=== PATIENT | female | born 1975 | race Caucasian/White ===

== ENCOUNTER 2022-07-26 07:14 | Outpatient (CLI) | payer OTHER, SELFPAY ==
[2022-07-26 07:48] LABS: Basophils Absolute Auto 0.1 K/mm3 (0.0-0.1); Eosinophils Absolute Auto 0.4 K/mm3 (0-0.3); Eosinophils Percent Auto 4.7 % (0-4.4); Hematocrit 40.9 % (37.0-47.0); Hemoglobin 13.3 g/dL (12.0-15.0); Immature Granulocyte Absolute 0.02 K/mm3 (0.00-0.031); Immature Granulocyte Percent A 0.2 % (0-0.5); Lymphocytes Absolute Auto 3.91 K/mm3 (0.9-3.2); Lymphocytes Percent Auto 43.3 % (18.3-44.2); Mean Corpuscular HGB Conc 32.5 g/dl (32-36); Mean Corpuscular Hemoglobin 30.9 pg (26-34); Mean Corpuscular Volume 94.9 fl (80-100); Mean Platelet Volume 9.8 fl (7.4-10.4); Monocytes Absolute Auto 0.7 K/mm3 (0.1-0.6); Monocytes Percent Auto 7.3 % (2.6-8.5); Neutrophils Absolute Auto 3.9 K/mm3 (1.3-6.7); Neutrophils Percent Auto 43.5 % (45.5-73.1); Platelet Count Result 309 k/mm3 (150-375); Red Blood Count 4.31 M/mm3 (4.2-5.4); Red Cell Distribution Width 11.8 % (11.5-14.5)
[2022-07-26 08:05] LABS: Alanine Aminotransferase 76 U/L (6-35); Albumin Level 4.8 g/dL (3.5-5.1); Alkaline Phosphatase 99 U/L (38-126); Anion Gap 8 mmol/L (8-16); Aspartate Amino Transferase 38 U/L (14-36); Bilirubin,Total 0.3 mg/dL (0.2-1.3); Blood Urea Nitrogen 16 mg/dL (7-17); Calcium 9.6 mg/dL (8.4-10.2); Carbon Dioxide 31 mmol/L (22-30); Chloride 101 mmol/L (98-107); Estimated Glomerular Filt Rate > 60; Glucose 99 mg/dL (65-110); Potassium 4.4 mmol/L (3.4-5.0); Sodium 140 mmol/L (137-145)
[2022-07-26 08:32] LABS: Erythrocyte Sedimentation Rate 15 mm/hr (0-20)
[2022-07-30 13:09] LABS: NIL 0.05 IU/mL; Quantiferon TB Plus, 1T POSITIVE (NEGATIVE); TB1-NIL 0.45 IU/mL; TB2-NIL 0.44 IU/mL
== END 2022-07-26 07:15 | disposition home or self-care (01) ==
PROVIDERS: PCP Internal Medicine
DX: M06.00 Rheumatoid arthritis without rheumatoid factor, unspecified site (principal); Z79.899 Other long term (current) drug therapy
CPT/HCPCS: 36415; 80053; 85025; 85652; 86480

== ENCOUNTER 2022-08-06 16:52 | Outpatient (CLI) | payer OTHER, SELFPAY ==
--- NOTE | ~2022-08-06 | XR_ITS ---
EXAMINATION: XR chest 2V Exam Date/Time: 08/06/2022 17:12 CDT HISTORY: POSITIVE QUANTIFERON TB GOLD TEST Comparison: 10/11/2021. RESULT: Lines, tubes, and devices: Cholecystectomy clips. Lungs and pleura: Clear. Cardiomediastinal silhouette: Stable. Other: No acute osseous or upper abdominal finding. IMPRESSION: No acute cardiopulmonary process. Reviewed, dictated and finalized at location K.
[2022-08-09 16:29] LABS: NIL 0.14 IU/mL; Quantiferon TB Plus, 1T NEGATIVE (NEGATIVE); TB1-NIL 0.26 IU/mL; TB2-NIL 0.22 IU/mL
== END 2022-08-06 16:53 | disposition home or self-care (01) ==
LOC: ANHLAB 16:56
PROVIDERS: PCP Internal Medicine
DX: R76.12 Nonspecific reaction to cell mediated immunity measurement of gamma interferon antigen response without active tuberculosis (principal)
CPT/HCPCS: 36415; 71046; 86480

== ENCOUNTER 2023-09-10 07:05 | Outpatient (CLI) | payer OTHER, SELFPAY ==
[2023-09-10 07:54] LABS: Hematocrit 39.4 % (37.0-47.0); Hemoglobin 12.9 g/dL (12.0-15.0); Mean Corpuscular HGB Conc 32.7 g/dl (32-36); Mean Corpuscular Hemoglobin 31.2 pg (26-34); Mean Corpuscular Volume 95.4 fl (80-100); Mean Platelet Volume 9.6 fl (7.4-10.4); Platelet Count Result 289 k/mm3 (150-375); Red Blood Count 4.13 M/mm3 (4.2-5.4); Red Cell Distribution Width 11.9 % (11.5-14.5); White Blood Count 8.2 K/mm3 (4.5-10.0)
[2023-09-10 08:09] LABS: Alanine Aminotransferase 51 U/L (6-35); Albumin Level 4.9 g/dL (3.5-5.1); Alkaline Phosphatase 86 U/L (38-126); Anion Gap 10 mmol/L (4-12); Aspartate Amino Transferase 35 U/L (14-36); Bilirubin,Total 0.4 mg/dL (0.2-1.3); Blood Urea Nitrogen 16 mg/dL (7-17); Calcium 9.8 mg/dL (8.4-10.2); Carbon Dioxide 32 mmol/L (22-30); Chloride 99 mmol/L (98-107); Cholesterol 208 mg/dL (0-200); Estimated Glomerular Filt Rate 59; Glucose 102 mg/dL (65-110); HDL Direct 58 mg/dL; Sodium 141 mmol/L (137-145); Triglycerides 261 mg/dL (<150)
[2023-09-10 08:19] LABS: LDL Cholesterol Direct 109 mg/dL
[2023-09-10 10:07] LABS: Vitamin D 25 Hydroxy 38.1 ng/mL
== END 2023-09-10 07:06 | disposition home or self-care (01) ==
PROVIDERS: PCP Family Medicine; Visit Provider Family Medicine
DX: E55.9 Vitamin D deficiency, unspecified (principal); E78.5 Hyperlipidemia, unspecified; G47.00 Insomnia, unspecified; I10 Essential (primary) hypertension; K75.81 Nonalcoholic steatohepatitis (NASH); M06.9 Rheumatoid arthritis, unspecified; Z76.89 Persons encountering health services in other specified circumstances
CPT/HCPCS: 36415; 80053; 80061; 82306; 85027

== ENCOUNTER 2023-11-18 07:06 | Outpatient (CLI) | payer OTHER, SELFPAY ==
[2023-11-18 08:13] LABS: Alanine Aminotransferase 73 U/L (6-35); Albumin Level 4.6 g/dL (3.5-5.1); Alkaline Phosphatase 90 U/L (38-126); Anion Gap 9 mmol/L (4-12); Aspartate Amino Transferase 40 U/L (14-36); Bilirubin,Total 0.5 mg/dL (0.2-1.3); Blood Urea Nitrogen 19 mg/dL (7-17); CRP < 0.5 mg/dL (<1.0); Calcium 9.7 mg/dL (8.4-10.2); Carbon Dioxide 29 mmol/L (22-30); Chloride 101 mmol/L (98-107); Estimated Glomerular Filt Rate 59; Glucose 96 mg/dL (65-110); Sodium 139 mmol/L (137-145)
[2023-11-18 08:30] LABS: Basophils Absolute Auto 0.1 K/mm3 (0.0-0.1); Basophils Percent Auto 0.8 % (0.2-1.2); Eosinophils Absolute Auto 0.3 K/mm3 (0-0.3); Eosinophils Percent Auto 3.4 % (0-4.4); Hematocrit 39.7 % (37.0-47.0); Immature Granulocyte Absolute 0.03 K/mm3 (0.00-0.031); Immature Granulocyte Percent A 0.3 % (0-0.5); Lymphocytes Absolute Auto 3.27 K/mm3 (0.9-3.2); Lymphocytes Percent Auto 37.5 % (18.3-44.2); Mean Corpuscular HGB Conc 32.7 g/dl (32-36); Mean Corpuscular Hemoglobin 31.3 pg (26-34); Mean Corpuscular Volume 95.7 fl (80-100); Mean Platelet Volume 9.8 fl (7.4-10.4); Monocytes Absolute Auto 0.6 K/mm3 (0.1-0.6); Monocytes Percent Auto 6.9 % (2.6-8.5); Neutrophils Absolute Auto 4.4 K/mm3 (1.3-6.7); Neutrophils Percent Auto 51.1 % (45.5-73.1); Platelet Count Result 298 k/mm3 (150-375); Red Blood Count 4.15 M/mm3 (4.2-5.4); Red Cell Distribution Width 11.9 % (11.5-14.5); White Blood Count 8.7 K/mm3 (4.5-10.0)
[2023-11-18 10:36] LABS: Erythrocyte Sedimentation Rate 11 mm/hr (0-20)
[2023-11-20 14:09] LABS: NIL 0.02 IU/mL; Quantiferon TB Plus, 1T NEGATIVE (NEGATIVE); TB1-NIL 0.13 IU/mL; TB2-NIL 0.06 IU/mL
== END 2023-11-18 07:07 | disposition home or self-care (01) ==
PROVIDERS: PCP Family Medicine
DX: M06.00 Rheumatoid arthritis without rheumatoid factor, unspecified site (principal); R76.12 Nonspecific reaction to cell mediated immunity measurement of gamma interferon antigen response without active tuberculosis; Z79.899 Other long term (current) drug therapy
CPT/HCPCS: 36415; 80053; 85025; 85652; 86140; 86480

== ENCOUNTER 2024-04-09 07:29 | Outpatient (CLI) | payer OTHER, SELFPAY | END 2024-04-09 07:30 | disposition home or self-care (01) | LOC: ANHIMG 07:30 | PROVIDERS: PCP Family Medicine; Visit Provider Family Medicine | DX: Z12.31 Encounter for screening mammogram for malignant neoplasm of breast (principal); R92.8 Other abnormal and inconclusive findings on diagnostic imaging of breast | CPT/HCPCS: 77063; 77067 ==

== ENCOUNTER 2024-09-04 07:12 | Outpatient (CLI) | payer OTHER, SELFPAY ==
--- OUTSIDE RECORDS SUMMARY | 2024-09-04 07:15 | XMS_ITS | Encounter Summary ---
Author Organization [facility] Address [address] [place] [address] Phone Care Team Providers Care Commissary Agent Name Role Phone Diego Rios MD Primary Care Provider [phone] Encounter Details Date Type Department Care Team (Late st Contact Info) Description 04/16/[address] 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 Historical Provider LAB BLOOD ORDERABLES Arabella l Result documented in this encounter Visit Diagnoses Not on filedocumented in this encounter Additional Health Concerns Infection Onset Date Last Indicated Resolved Time COVID: Suspected 12/22/2019 12/23/2019 12/23/2019 1:56 PM WELDER/INSTALLER COVID19 12/23/2019 12/23/2019 01/06/2020 3:07 AM WELDER/INSTALLER COVID: Recovered Comment:Added based on recent COVID infection. 01/06/2020 01/16/2020 05/05/2020 3:05 AM C DT COVID: Suspected 07/01/2021 07/01/2021 07/02/2021 3:05 AM CDT COVID19 07/01/2021 07/01/2021 07/11/2021 3:05 AM CDT COVID: Recovered Comment:Added based on recent COVID infection. 07/11/2021 08/14/2021 11/08/2021 3:05 AM C DT documented as of this encounter Care Teams Commissary Agent Relationship Specialty Start Date End Date Diego Rios MD PCP - General Family Practice 11/20/23 documented as of this encounter
--- OUTSIDE RECORDS SUMMARY | 2024-09-04 07:15 | XMS_ITS | Clinical Summary ---
Author Organization [facility] Address [address] [place] [address] Care Team Providers Care Tariff Clerk Name Role Phone Diego Rios MD Primary Care Provider [phone] Allergies Active Allergy Reactions Criticality Noted Date Comments Fenofibrate Other (See comments) Low Reaction: possible liver function tests elevation, Lorcaserin Hcl Other (See comments) Low Reaction: increased liver enzymes, Penicillins Other (See comments) Reaction: Unknown, , , Medications cholecalciferol (VITAMIN D3) 5,000 unit tablet Take 1 tablet (5,000 Units total) by mouth daily 08/21/[address] (PROTONIX) 40 mg EC tablet TAKE 1 TABLET BY MOUTH DAILY 90 tablet 3 12/02/2022 Active pravastatin (PRAVACHOL) 20 mg tablet TAKE 1 TABLET BY MOUTH DAILY 90 tablet 3 12/02/2022 Active lisinopriL (PRINIVIL,ZESTR IL) 5 mg tablet TAKE 1 TABLET BY MOUTH DAILY 90 tablet 3 12/02/2022 Active traZODone (DESYREL) 50 mg tablet TAKE 1 TABLET BY MOUTH AT NIGHT NEEDED FOR SLEEP 30 tablet 11 02/06/2023 Active omega-3 fatty acids (LOVAZA) 1 gram capsule Take two capsules by mouth twice a day 360 capsule 3 02/11/2023 Active abatacept (Orencia) 125 mg/mL injectionIndica tions:Rheumatoi d Arthritis Inject 1 mL (125 mg total) under the skin once a week 4 mL 6 05/04/2024 Active hydroxychloroqu ine (PLAQUENIL) 200 mg tablet Take 1 tablet (200 mg total) by mouth 2 (two) times a day 180 tablet 3 05/28/2024 Active Active Problems Problem Noted Date Diagnosed Date Immunosuppression due to drug therapy 04/14/2024 Assessment & Plan (04/14/2024 2:48 PM DRYWALL TAPER HELPER): Encourage routine vaccinations. Follow up with PCP. Avoid close contact with infectious individuals. If you become ill, please let us know so we can provide guidance on holding your immunosuppressant medications. Encounter for long-term (cur rent) use of high-risk medication 03/19/2022 Assessment & Plan (04/14/2024 2:47 PM DRYWALL TAPER HELPER): Long-term use of high-risk medication requiring regular monitoring. Labs done through [facility] reviewed. no s/s of med tox or current infection. Encouraged to work with PCP to make sure all recommended cancer screens and vaccinations are complete. Avoid live-vaccines unless reviewed with bottom painter first. Assessment & Plan (10/29/2023 2:17 PM CDT): Long-term use of high-risk medication requiring regular monitoring. Labs ordered, no s/s of med tox or infection. Encouraged to work with PCP to make sure all recommended cancer screens and vaccinations are complete. Avoid live-vaccines unless reviewed with bottom painter first. Assessment & Plan (03/19/2022 12:52 PM DRYWALL TAPER HELPER): Long-term use of high-risk medication requiring regular monitoring. Labs ordered, no s/s of med tox or infection. Encouraged to work with PCP to make sure all recommended cancer screens and vaccinations are complete. Avoid live-vaccines unless reviewed with bottom painter first. TB due with labs. Long-term use of hydroxychloroquine 03/19/2022 Assessment & Plan (04/14/2024 2:48 PM DRYWALL TAPER HELPER): Up to date with eye exam. [facility] MONTENEGRO October 2023. Assessment & Plan (10/29/2023 2:17 PM CDT): Up to date with eye exams ([facility] in [place]) no HCQ toxicity. Hydroxychloroquine (Plaquenil) is a disease-modifying anti-rheumatic drug (DMARD). It can decrease the pain and swelling of arthritis which can prevent joint damage leading to long-term disability. Hydroxychloroquine is in a class of medications that was first used to prevent and treat malaria but today is the standard drug in lupus. It can be used in many other autoimmune diseases. It is not fully clear of its mechanism of action, but the current thought is that it interferes with communication in the immune system. How to Take It Hydroxychloroquine comes in an oral tablet. Adult dosing for rheumatic diseases ranges from 200 mg to 400 mg per day (typically 5 mg/kg, maximum 400 mg daily). In some cases, higher doses are used. It can be taken as a single daily dose or in 2 divided doses if taking more than one tablet. It is recommended to be taken with food as some of the gastrointestinal side effects can be alleviated with food and fats. Symptoms can start to improve in one to two months, but it may take up to six months before the full benefits of this medication are experienced. Side Effects Hydroxychloroquine typically is very well tolerated. The most common side effects are nausea and diarrhea, which often improve with time. Less common side effects include rash, hair changes, and muscle weakness. Rarely, hydroxychloroquine can lead to anemia in some individuals. This can happen in individuals with a condition known as G6PD deficiency or porphyria. In rare cases, hydroxychloroquine can cause visual changes or loss of vision. Such problems are more likely to occur in individuals taking high doses for many years, in individuals 60 years or older, those with significant kidney or liver disease, and those with underlying retinal disease. At the recommended dose, the development of visual problems due to the medication is rare. It is recommended that you have an eye exam within the first year of use, then repeat every 1 to 5 years based on current guidelines. Additional rare reports of changes in the heart rhythm have been reported with the use of hydroxychloroquine, particularly in combination with other medications. While monitoring for this risk is not typical in the office setting, it has been indicated in hospitalized and critically ill patients to evaluate for interactions with other medications. Tell Your Rheumatology Provider Although there are few drug interactions with hydroxychloroquine, be sure to tell your rheumatology provider about all the medications you are taking, including [id number] drugs and natural remedies. Be sure to notify your other providers when taking this drug. This drug is not known to suppress your immune system but rather to alter some functions within it. Vaccines recommended for healthcare maintenance are generally acceptable. Notify your eye doctor when you are on this medication so regular visual screening tests can be performed. If you are , considering becoming , or lactating, please discuss with your rheumatology provider that you are taking this medication. Hydroxychloroquine has been shown to be safe during and . Updated March 2023 by James Wood MD, and reviewed by the [employer] Committee on Communications and Marketing Assessment & Plan (03/20/2022 8:43 AM DRYWALL TAPER HELPER): Last eye exam was without signs of Toxicity at [facility] in Summer 2021. Will call to get report scanned to her chart. Screening Ophthalmological Evaluation Request Medication: Hydroxychloroquine (Plaquenil) Patient: Please obtain the following eye exam with your eye doctor before starting hydroxychloroquine (Plaquenil). Then, continue to obtain yearly eye exams (or as directed by your eye doctor) while taking Plaquenil. Provider: Please perform the following exams on an annual basis: Visual Acuity Visual Field testing Slit Lamp evaluation Color Vision Assessment OCT Insomnia 09/26/2021 Assessment & Plan (04/05/2023 12:57 PM DRYWALL TAPER HELPER): Continue trazodone. Assessment & Plan (09/26/2021 11:24 AM CDT): Sleep hygiene discussed. Trial of trazodone. Increase to 2 tablets after 1 week if needed. May increase to 3 tablets after 1 more week if needed. Call back if no improvement. Urinary frequency 08/16/2021 Assessment & Plan (09/26/2021 11:23 AM CDT): Macrobid for 7 days and then repeat UA with culture in 2 weeks. Call back for results. Call Back if symptoms do not improve. Assessment & Plan (08/16/2021 2:20 PM CDT): Start Bactrim for possible underlying urinary tract infection. Await culture results. May have passed a small stone as well. Repeat UA in 2 weeks to ensure clearing of her microscopic hematuria. She will call back if pain returns for CT imaging. Screening for colon cancer 08/31/2018 Overview (08/31/2018): Added automatically from request for surgery [id number] Neck strain, initial encounter 03/21/2018 Assessment & Plan (03/21/2018 6:06 PM DRYWALL TAPER HELPER): Neck strain since Friday No improvement with OTC remedies Continue with ice and heat as tolerated Light range of motion PT if no improvement Neoplasm of uncertain behavior 03/19/2018 Assessment & Plan (03/19/2018 3:16 PM DRYWALL TAPER HELPER): chest Biopsy/ies done per procedure note. Wound care reviewed with patient. Follow-up per path. Vitamin D deficiency 02/08/2018 Assessment & Plan (04/05/2023 12:58 PM DRYWALL TAPER HELPER): Continue current supplementation and check level in 1 year. Assessment & Plan (09/26/2021 11:22 AM CDT): Continue current supplementation and check level in 1 year. Assessment & Plan (11/08/2020 3:13 PM CDT): Continue current supplementation and check level in 1 year. Assessment & Plan (09/07/2019 4:01 PM CDT): Continue current supplementation and check level in 1 year. Assessment & Plan (03/08/2019 9:25 AM DRYWALL TAPER HELPER): She should be more consistent with her vitamin-D intake. Assessment & Plan (08/21/2018 9:25 AM CDT): Continue 5000 units daily and check level before next visit. Assessment & Plan (04/22/2018 10:30 PM CDT): Continue supplementation check level in 1 year. Assessment & Plan (02/08/2018 2:56 PM DRYWALL TAPER HELPER): Should be taking her vitamin-D on a regular basis. Diarrhea following gastrointestinal surgery 12/13 Assessment & Plan (04/22/2018 10:32 PM CDT): Increase colestipol. Call back if no improvement in 2 weeks for increase in dose again. Consider GI referral if no improvement next visit. Assessment & Plan (02/08/2018 2:54 PM DRYWALL TAPER HELPER): Trial of colestipol Healthcare maintenance 04/16/2017 Assessment & Plan (04/05/2023 12:57 PM DRYWALL TAPER HELPER): Flu shot each November. Tetanus booster every 10 years. COVID booster recommended. Colonoscopy due October 2028. Mammogram yearly. Follow-up the power plant assistant as they direct. Will see her back in 1 year for physical fasting lab sooner if needed. Assessment & Plan (09/26/2021 11:24 AM CDT): Flu shot each November. Tetanus booster updated today. COVID vaccine completed. Colonoscopy due October 2028. Mammogram yearly. Follow-up the power plant assistant for breast exam and pelvic exam as they direct. Will see her back in 1 year for physical fasting lab sooner if needed. Assessment & Plan (11/08/2020 3:13 PM CDT): Flu shot each November. Tetanus booster 10 years. COVID vaccine completed. Colonoscopy due October 2028. Mammogram yearly. Follow-up the power plant assistant for breast exam and pelvic exam as they direct. We will see her back in 1 year for physical fasting lab sooner if needed. Assessment & Plan (09/07/2019 4:03 PM CDT): Flu shot each November. Tetanus booster every 10 years. Diagnostic mammogram due in October. Call back for results. Colonoscopy due October 2028. Follow-up with the power plant assistant for breast exam and pelvic exam as they direct. We will see her back in 1 year for physical fasting lab sooner if needed. Assessment & Plan (04/22/2018 10:30 PM CDT): Flu shot each November. Tetanus booster every 10 years. Mammogram yearly. Follow- up the power plant assistant for breast exam and pelvic exam as they direct. We will see her back in 3 months with labs and blood pressure check sooner if needed. Assessment & Plan (04/16/2017 8:47 AM DRYWALL TAPER HELPER): Flu shot each November. Tetanus booster every 10 years. She will need a 2nd found Pneumovax at age 63. She is up-to-date her power plant assistant. Yearly mammogram. We will see her back in 1 year for physical and fasting lab sooner if needed BMI 33.0-33.9,adult 09/18/2016 Nonalcoholic fatty liver disease 12/02/2013 Overview (05/16/2016): FERREIRA Assessment & Plan (04/05/2023 12:57 PM DRYWALL TAPER HELPER): Weight loss recommended for FERREIRA. Assessment & Plan (09/26/2021 11:22 AM CDT): Elevated liver transaminases likely due to her FERREIRA. Loss recommended. If levels elevate to 3 times of normal, will need to consider discontinuing her statin therapy. Assessment & Plan (11/08/2020 3:13 PM CDT): Weight loss recommended. Assessment & Plan (09/07/2019 4:04 PM CDT): Weight loss recommended. Assessment & Plan (04/22/2018 10:30 PM CDT): Weight loss recommended. Gastroesophageal reflux disease 08/12/2013 Overview (05/16/2016): GERD Assessment & Plan (11/08/2020 3:12 PM CDT): Well controlled on her pantoprazole Assessment & Plan (09/07/2019 4:02 PM CDT): Continue current PPI and the patient is aware of the long-term risks posed by chronic PPI usage. Magnesium level will be checked periodically. Calcium supplementation recommended. Assessment & Plan (03/08/2019 9:25 AM DRYWALL TAPER HELPER): Continue current PPI and the patient is aware of the long-term risks posed by chronic PPI usage. Magnesium level will be checked periodically. Calcium supplementation recommended. Assessment & Plan (08/21/2018 9:24 AM CDT): Continue current PPI and the patient is aware of the long-term risks posed by chronic PPI usage. Magnesium level will be checked periodically. Calcium supplementation recommended. Assessment & Plan (04/22/2018 10:29 PM CDT): Continue current PPI and the patient is aware of the long-term risks posed by chronic PPI usage. Magnesium level will be checked periodically. Calcium supplementation recommended. Assessment & Plan (02/08/2018 2:53 PM DRYWALL TAPER HELPER): Continue current PPI and the patient is aware of the long-term risks posed by chronic PPI usage. Magnesium level will be checked periodically. Calcium supplementation recommended. Assessment & Plan (04/16/2017 8:43 AM DRYWALL TAPER HELPER): Continue current PPI and the patient is aware of the long-term risks posed by chronic PPI usage. Magnesium level will be checked periodically. Calcium supplementation recommended. Hyperlipidemia 08/12/2013 Overview (05/16/2016): Hyperlipidaemia Assessment & Plan (04/05/2023 12:57 PM DRYWALL TAPER HELPER): Well controlled on current therapy and will check a lipid panel and LFTs in 6 months. Assessment & Plan (09/26/2021 11:22 AM CDT): Well controlled on current therapy and will check a lipid panel next week and call back for results. Repeat lipid panel before next visit as well. Assessment & Plan (11/08/2020 3:13 PM CDT): Well controlled on current therapy and will check a lipid panel and LFTs in 12 months. Assessment & Plan (09/07/2019 4:01 PM CDT): Well controlled on current therapy and will check a lipid panel and LFTs in 12months. Assessment & Plan (03/08/2019 9:25 AM DRYWALL TAPER HELPER): Currently well controlled on her pravastatin and Lovaza. Assessment & Plan (08/21/2018 9:24 AM CDT): Continue pravastatin and Lovaza. Discontinue colestipol since it is not helping her diarrhea and will see will what kind of affect it has on her cholesterol. Consider either changing Lovaza to Vascepa or try fenofibrate if triglycerides not improved. Of course improvement of diet exercise encouraged. Assessment & Plan (04/22/2018 10:29 PM CDT): Stop Niaspan due to flushing. Increase colestipol. Continue her pravastatin and Lovaza. Check labs before next visit. Assessment & Plan (02/08/2018 2:53 PM DRYWALL TAPER HELPER): Make sure she is still taking her pravastatin. Continue her Lovaza, Niaspan but add colestipol and of course work on diet exercise and weight loss. Assessment & Plan (04/16/2017 8:43 AM DRYWALL TAPER HELPER): Continue pravastatin for now and check lipids and LFTs today and before next visit should call back for results. Diet exercise discussed. Steatosis of liver 08/12/2013 Overview (04/16/2017): Fatty liver on ultrasound November 2011. Assessment & Plan (04/16/2017 8:46 AM DRYWALL TAPER HELPER): Weight loss recommended. Seronegative rheumatoid arthritis 06/26/2013 Overview (05/15/2016): Seronegative rheumatoid arthritis Assessment & Plan (04/14/2024 2:47 PM DRYWALL TAPER HELPER): Much improved and stable on orencia and HCQ. Continue same. Follow up in 6 months and prn. Assessment & Plan (10/29/2023 2:17 PM CDT): Flare in symptoms while off orencia. Medrol dose pack for her acute flare in hand joint pain and swelling. Continue HCQ, sent in new RX for orencia and samples provided. Follow up in 3-4 months and prn. Assessment & Plan (03/20/2022 8:42 AM DRYWALL TAPER HELPER): Stable on Orencia and HCQ. Continue same. Follow up in 5 months and prn. Assessment & Plan (09/26/2021 11:21 AM CDT): Continue current medication regimen with bottom painter as they direct. Assessment & Plan (11/08/2020 3:12 PM CDT): Well controlled on current medication regimen and follow-up with bottom painter as they direct. Assessment & Plan (09/07/2019 4:01 PM CDT): Well controlled on hydroxychloroquine and Orencia and should follow-up with her bottom painter as they direct. Assessment & Plan (03/08/2019 9:25 AM DRYWALL TAPER HELPER): Currently doing well on her medication regimen managed by her bottom painter. Assessment & Plan (08/21/2018 9:22 AM CDT): Continue current medication regimen follow up with her bottom painter as they direct. Assessment & Plan (04/22/2018 10:29 PM CDT): Follow-up with her bottom painter as they direct. Assessment & Plan (04/16/2017 8:43 AM DRYWALL TAPER HELPER): Well controlled on her current regimen and should follow up with bottom painter as they direct. Hypertension 05/27/2013 Overview (05/17/2016): Hypertension Assessment & Plan (04/05/2023 12:57 PM DRYWALL TAPER HELPER): Blood pressure well controlled on lisinopril only. Assessment & Plan (09/26/2021 11:22 AM CDT): Well controlled on the current regimen. Avoidance of salt, proper body weight, and routine exercise recommended. Assessment & Plan (11/08/2020 3:13 PM CDT): Well controlled on the current regimen. Avoidance of salt, proper body weight, and routine exercise recommended. Assessment & Plan (09/07/2019 4:01 PM CDT): Well controlled on the current regimen. Avoidance of salt, proper body weight, and routine exercise recommended. Assessment & Plan (03/08/2019 9:25 AM DRYWALL TAPER HELPER): Well controlled on the current regimen. Avoidance of salt, proper body weight, and routine exercise recommended. Assessment & Plan (08/21/2018 9:22 AM CDT): Well controlled on the current regimen. Avoidance of salt, proper body weight, and routine exercise recommended. Assessment & Plan (04/22/2018 10:30 PM CDT): Blood pressure is borderline. Check blood pressure at home. May increase lisinopril next visit if not well controlled. Assessment & Plan (02/08/2018 2:54 PM DRYWALL TAPER HELPER): Well controlled on the current regimen. Avoidance of salt, proper body weight, and routine exercise recommended. Assessment & Plan (04/16/2017 8:44 AM DRYWALL TAPER HELPER): Well controlled on the current regimen. Avoidance of salt, proper body weight, and routine exercise recommended. Skin tag 04/25/2011 Resolved Problems Problem Noted Date Diagnosed Date Resolved Date Leukocytosis 12/26/2014 06/28/2018 Overview (05/16/2016): Leukocytosis Assessment & Plan (04/16/2017 8:44 AM DRYWALL TAPER HELPER): Chronic and asymptomatic and warning signs discussed which would prompt a repeat visit before next year.. Hypertriglyceridemia 06/26/2013 018 Overview (05/15/2016): Hypertriglyceridemia Encounters Date Type Department Care Team Description 06/16/[address] [facility] Rhe[facility]ology at [facility] [address] [place] [address] Morena Davis NP Clarification on RRx Enbrel from Last 3 Months Immunizations Immunization Administration Dates Next Due HPV, Unspecified 12/09/2017 Influenza, Quadrivalent, Spl it, Preservative Free, Intramuscular 11/15/2015 Influenza, Trivalent, IM (MDV) 5,11/10/2012,11/10/2012,11/09 Influenza, Trivalent, Recomb inant, Egg Free, Preservative Free, Antibiotic Free, IM (FLUBLOK) 11/10/2013,11/10/2013 Influenza, Unspecified 11/11/2022,2021(Deferred: Patient Refused),11/11/2019(Deferred: Patient Refused),12/11/2018,12/07/2017, 017 Pfizer SARS-CoV-2 Monovalent Vaccination (12+ Yrs) PURPLE 02/28/2020,02/08/2020 Pneumococcal Conjugate PCV 13 03/18/2014, 015 Pneumococcal Polysaccharide PPV23 03/19/2016 Td, adsorbed 09/26/2021 Tdap 05/09/2011 Surgical History Surgery Date Site/Laterality Comments CHOLECYSTECTOMY 02/10/2001 - 02/09/2002 Cholecystectomy OTHER SURGICAL HISTORY 02/11/2004 - 02/09/2005 excessive bleeding: endometrial ablation OTHER SURGICAL HISTORY Lt wrist ganglion cyst removed OTHER SURGICAL HISTORY choecystectomy TUBAL LIGATION Bilateral tubal ligation ENDOMETRIAL ABLATION endometrial ablation OTHER SURGICAL HISTORY 02/11/2012 - 02/09/2013 nephrolithiasis: lithotripsy and stent placement w/removal rt stone OTHER SURGICAL HISTORY Gallstone: Cholecystectomy OTHER SURGICAL HISTORY Dr. Juany Vela/[facility] OTHER SURGICAL HISTORY in menopause age 34. COLONOSCOPY 03/31/2006 Medical History Medical History Date Comments Calculus of kidney Kidney Stones Hx Other Medical excessive bleed ing Hx Other Medical Menopausal symp toms-hot flashes Insomnia Insomnia Gastroesophageal reflux disease GERD Calculus of kidney nephrolithias is Calculus of gallbladder [place] e; Comments: [facility] 08/12/2013 - Ganglion Ganglion cyst; C omments: [facility] 08/12/2013 - Hx Other Medical Tubal Ligation; Comments: [facility] 08/12/2013 - Hyperlipidemia Hyperlipidemia; Comments: [facility] 08/12/2013 - Hypertension Hypertension Insomnia Insomnia; Commen ts: [facility] 08/12/2013 - Menopause present Menopause; Com ments: [facility] 08/12/2013 - Steatosis of liver Fatty liver; Comments: [facility] 08/12/2013 - Autoimmune disease Rheumatoid arthritis Family History Medical History Relation Name Comments Hyperlipidemia Brother 2 Keith Rogel Hyperlipidemi a; Hypertension Brother 2 Keith Rogel htn; Other Brother 2 Keith Rogel NAFL-fatty live r; Bladder Cancer Brother 3 Walt Rogel bladder cance r; Cancer Brother 3 Walt Rogel Heart attack Brother 3 Walt Rogel 54 Heart disease Brother 3 Walt Rogel Hypertension Brother 3 Walt Rogel Hyperlipidemia Brother 4 0 Hyperlipidemi a; Bladder Cancer Brother 5 Cancer, bladd er; Hypertension Brother 6 N/a Hypertension; COPD Father Scottie Rogel Cancer Father Scottie Rogel Coronary artery disease Father Scottie Rogel Bandar nary artery disease; living. early 40s [place]./Coronary artery disease; Early Father Scottie Rogel Heart attack Father Scottie Rogel Hyperlipidemia Father Scottie Rogel Hyperlipidemi a; Hypertension Father Scottie Rogel Hypertension; living/Hypertension; Stroke Father Scottie Rogel Stroke; living/ Stroke; Breast cancer Father's Sister Other Maternal Grandmother NAFL-fa tty liver; Hyperlipidemia Mother Michell Rogel Hyperlipidemi a; Hypertension Mother Michell Rogel Hypertension; living/Hypertension; Other Mother Michell Rogel NAFL-fatty live r; living Breast cancer Mother's Sister Other Other 1 Family history of high cholesterol; Hypertension Other 2 Family history of Hypertension; Cancer Other 3 Family history of Cancer -; Other Sister Mindy. Alive and well; Endometrial cancer Neg Hx Ovarian cancer Neg Hx Thyroid cancer Neg Hx Relation Name Status Comments Brother 1 Alive Brother 2 Keith Rogel Alive Brother 3 Walt Rogel Brother 4 0 Brother 5 Brother 6 N/a Father Scottie Rogel Father's Sister Maternal Grandmother Alive Mother Michell Rogel Alive Mother's Sister Other 1 Other 2 Other 3 Sister Mindy. Alive Social History Tobacco Use Types Packs/Day Years Used Date Smoking Tobacco: Never Smokeless Tobacco: Never Tobacco Cessation:Counseling Given: Not Answered Alcohol Use Standard Drinks/Week Comments No 0 (1 standard drink = 0.6 oz pur e alcohol) AUDIT-C Answer Date Recorded Q1: How often do you have a drink containing alc ohol? Never 02/11/2023 Average Number of Drinks Not on file 024 Q3: How often do you have si x or more drinks on one occasion? Never 02/11/2023 PHQ-2 Answer Date Recorded PHQ-2 Total Score (If total score is 3 or more points, staff should administer the PHQ-9) 0 02/11/2023 Comments No Sex and Gender Information Value Date Recorded Sex Assigned at Not on file Legal Sex Female 11:28 PM [employer]YWALL T[employer]ER [employer] Gender Identity Not on file Sexual Orientation Not on file Obstetrics History Para Term AB IAB SAB Ectopic Multiple Livin g Live Births 2 2 2 Date Outcome GA Total Labor Labor/2nd/3rd Weight Sex Type Anes PTL Imelda A1 A5 Name Clin Term Term Last Filed Vital Signs Vital Sign Reading Time Taken Comments Blood Pressure 120/74 04/14/2024 2:04 PM [employer] Pulse 84 04/14/2024 2:04 PM [employer] Temperature 36.9 C (98.4 F) 04/14/2024 2:04 PM [employer] HELPER Respiratory Rate 18 04/14/2024 2:04 PM [employer]YWALL T[employer] Oxygen Saturation 98% 04/14/2024 2:04 PM [employer]WALL T[employer] Inhaled Oxygen Concentration - - Weight 72.6 kg (160 lb) 04/14/2024 2:04 PM [employer] Height 152.4 cm (5') 04/14/2024 2:04 PM [employer] Body Mass Index 31.25 04/14/2024 2:04 PM [employer] HEL[employer] Plan of Treatment Health Maintenance Due Date Last Done Comments Hepatitis C Screening 1975 Hepatitis B Screening 12/31/1991 Zoster Vaccine (1 of 2) 1992 Covid-19 Vaccine (3 - Pfizer risk series) 03/27/2020 02/28/2020, 02/08/2020 Cervical Cancer Screening 12/06/2020 12/07/2019, Pneumococcal vaccine <65 (3 of 3 - PPSV23, PCV20 or PCV21) 03/19/2021 03/19/2016, 03/18/2014, 03/18/2014 Breast Cancer Screening-Mammogram 09/24/2022 09/24/2021, 08/28/2020, 04/06/2019, Additional history exists Depression Screening 02/12/2024 02/11/2023, 09/26/2021, 08/16/2021, Additional history exists Regular Well Visit/Exam 18-64 02/12/2024, 09/26/2021, 09/25/2020, Additional history exists Influenza Vaccine (#1) 2024 , 12/11/2018, 12/07/2017, Additional history exists Colon Cancer Screening-Colonoscopy 10/16/2028 10/16/2018, 03/31/2006 DTaP/Tdap/Td Vaccine (3 - Td or Tdap) 09/27/2031 09/26/2021, 05/09/2011 Colon Cancer Screening-CT Colonography Discontinued 10/16/2018, 03/31/2006 Colon Cancer Screening-DNA Stool Discontinued 10/17/19 19, 03/31/2006 Colon Cancer Screening-FIT Discontinued 10/16/2018, Colon Cancer Screening-Sigmoidoscopy Discontinued 10/16/2018, 03/31/2006 Procedures Procedure Name Priority Date/Time Associated Diagnosis Comments SCREENING MAMMOGRAM BILATERAL W TEN Schedule Routine, Read Routine (OP Routine) 09/24/2021 2:14 PM CDT Encounter for screening mammogram for malignant neoplasm of breast PAP AND HIGH RISK HPV, REFLEX TO GENOTYPING Routine 12/07/2019 2:46 PM CDT COLONOSCOPY 10/16/2018 8:00 AM CDT from Last 3 Months or Most Recently Relevant to Health Maintenance Results * Screening Mammogram Bilateral W Ten (09/24/2021 2:14 PM CDT) Anatomical Region Laterality Modality Breast Bilateral Mammography 09/24/2021 2:30 PM CDT Impressions 09/24/2021 2:30 PM CDT No evidence of malignancy in either breast. FINAL ASSESSMENT: BI-RADS Category 1: Negative. RECOMMENDATION: Recommend return for annual screening mammogram in 12 months. Electronically signed by: Marilia Garcias M.D. Narrative 09/24/2021 2:30 PM CDT EXAMINATION: BILATERAL SCREENING MAMMOGRAM COMPARISON: Multiple prior studies, most recently 08/28/2020 and dating back to 02/11/2014 . TECHNIQUE: Full-field 2D and digital breast tomosynthesis (DBT) images were obtained. CAD was utilized. BREAST PARENCHYMAL COMPOSITION: The breasts are heterogenously dense, which may obscure small masses. FINDINGS: There is no suspicious mass, calcification, or distortion in either breast. There has been no significant interval change from the prior study. us Bienvenido Yoder MD IMG MAMMO PROCEDURES F inal Result * Pap and High Risk HPV, reflex to Genotyping (12/07/2019 2:46 PM CDT) 12/07/2019 2:46 PM CDT 12/08/2019 2:46 PM CDT Narrative 12/10/2019 2:43 PM CDT [facility] Department of Pathology [address] [place] [id number] Final Report Patient Name: CRISTIAN ALBRIGHT Address: [address] [place] [address] Gender: F : 1975 (Age: 43) Service: Laboratory Location: Lab [facility] #: [id number] Patient Type: Ref Lab Taken: 12/07/2019 Received: 12/08/2019 Accessioned:: 12/08/2019 Reported: 12/10/2019 Physician(s): Dr. Tamika Yoder M.D. Dr. Tamika Yoder M.D. Diagnosis: Source of Specimen: SCREENING THIN PREP IMAGED PAP w/ Reflex HPV Specimen Adequacy: - Specimen satisfactory for interpretation; endocervical/transformation zone component absent or insufficient General Category: - Negative for intraepithelial lesion or malignancy RIMA Lombardo(ASCP) Report Electronically Reviewed and Signed Out By RIMA Lombardo(ASCP) 12/10/2019 14:43:56 Specimen(s) Received: A: SCREENING THIN PREP IMAGED PAP w/ Reflex HPV Clinical History: Last Menstrual Period: unknown The Pap test is a screening test used to aid in the detection of cervical cancer and its precursors. It should not be the sole means by which malignant and premalignant lesions are diagnosed. Both false negative and false positive results may occur. It also has poor sensitivity for the detection of endometrial lesions and should not be used to evaluate suspected endometrial abnormalities. For these reasons it is most important to obtain Pap tests at regular intervals. The performance characteristics of some immunohistochemical stains, fluorescence in-situ hybridization tests and immunophenotyping by flow cytometry cited in this report (if any) were determined by the Surgical Pathology Department at [facility] as part of an ongoing director supplier quality program and in compliance with federally mandated regulations drawn from the Clinical Laboratory Improvement Act of 1988 (CLIA '88). Some of these tests rely on the use of analyte specific reagents and are subject to specific labeling requirements by the US Food and Drug Administration. Such diagnostic tests may only be performed in a facility that is certified by the Department of Health and Human Services as a high complexity laboratory under CLIA '88. The FDA has determined that such clearance or approval is not necessary. This test is used for clinical purposes. It should not be regarded as investigational or for research. Nevertheless, federal rules concerning the medical use of analyte specific reagents require that the following disclaimer be attached to the report: This test was developed and its performance characteristics determined by the Surgical Pathology Department [facility]. It has not been cleared or approved by the U. S. Food and Drug Administration. us Bienvenido Yoder MD LAB CYTOLOGY ORDERABLE S Final Result * COLONOSCOPY (10/16/2018 8:00 AM CDT) Anatomical Region Laterality Modality Other Narrative Procedure Note Michael Mata MD - 10/16/2018 8:00 AM CDT [facility] Patient Name: Cristian Albright Procedure Date: 10/16/2018 8:00 AM Date of : 1975 Admit Type: Outpatient Age: 42 Gender: Female Attending MD: Michael Mata M.D. Room: [facility] ENDOSCOPY ROOM 2 Note Status: Finalized Patient Profile: Refer to note in patient chart for documentation of history and physical. Procedure: Colonoscopy Indications: Screening for colorectal malignant neoplasm, Last colonoscopy: March 2006 Referring MD: Ean Jameson M.D. Providers: Michael Mata M.D. Impression: - The entire examined colon is normal. - No specimens collected. Recommendation: - Discharge patient to home. - Resume previous diet. - Continue present medications. - Repeat colonoscopy in 10 years for screeningpurposes. - Return to primary care physician as previously scheduled. Medicines: Propofol per Anesthesia Complications: No immediate complications. Estimated Blood Loss: Estimated blood loss: none. Procedure: Pre-Anesthesia Assessment: - This assessment was completed [Time of Assessment] prior to the administration of sedation. The benefits, risks and alternatives of theprocedure and sedation were discussed and informed consent was obtained. All questions were answered. Please referto the signed informed consent document in the medical record. Bowel prep was administered using a single dose. The bowel preparation used was Miralax. Thebowel preparation used was bisacodyl tablets. The scopewas passed under direct vision. The [id number] was introduced through the anus andadvanced to the the cecum, identified by appendiceal orificeand ileocecal valve. The colonoscopy was performedwithout difficulty. The patient tolerated the procedurewell. The quality of the bowel preparation was good. The colonoscopy was performed without difficulty. Findings: The perianal and digital rectal examinations were normal. The colon (entire examined portion) appeared normal. Electronically signed by Michael Mata M.D. Michael Mata M.D. 10/16/2018 9:17:45 AM Number of Addenda: 0 Note Initiated On: 10/16/2018 8:00 AM Procedure Code(s): --- Professional --- G0121, Colorectal cancer screening; colonoscopy on individual not meeting criteria for high risk Diagnosis Code(s): --- Professional --- Z12.11, Encounter for screening for malignant neoplasm of colon CPT copyright 2017 [employer]. All rights reserved. The codes documented in this report are preliminary and upon naphtha washing system operator reviewmay be revised to meet current compliance requirements. Recognized by the [employer] for promoting quality in endoscopy Michael Mata MD ENDOSCOPY PROCEDURES Final Re sult from Last 3 Months or Most Recently Relevant to Health Maintenance Insurance [facility] [employer] [employer] Address: [facility] [id number] [place] [address] [facility] [employer] Address: [facility] [address] [place] [address] [facility] Advance Directives For more information, please contact: [phone] * Full Code (Latest Code Status on File) Date Activated Date Inactivated Comments 10/16/2018 7:45 AM 10/16/2018 2:04 PM * Full Code Date Activated Date Inactivated Comments 10/16/2018 7:45 AM 10/16/2018 7:45 AM Care Teams Tariff Clerk Relationship Specialty Start Date End Date Diego Rios MD PCP - General Family Practice 11/20/23
--- OUTSIDE RECORDS SUMMARY | 2024-09-04 07:16 | XMS_ITS | Referral Summary ---
Author Organization [facility] Address [address] [place] [address] Care Team Providers Care Company Marker Name Role Phone Diego Rios MD Primary Care Provider [phone] Encounters Date Type Department Care Team Description 06/16/2024 Telephone [facility] Rheumatology at [facility] [address] [place] [address] Morena Davis NP Clarification on RRx Enbrel from Last 3 Months Allergies Active Allergy Reactions Criticality Noted Date [...] 04/14/2024 Assessment & Plan (04/14/2024 2:48 PM PIVOT END POLISHER): Encourage routine vaccinations. Follow up with PCP. Avoid close contact with infectious individuals. If you become ill, please let us know so we can provide guidance on holding your immunosuppressant medications. Encounter for long-term (cur rent) use of high-risk medication 03/19/2022 Assessment & Plan (04/14/2024 2:47 PM PIVOT END POLISHER): Long-term use of high-risk medication requiring regular monitoring. Labs done through [facility] reviewed. no s/s of med tox or current infection. Encouraged to work with PCP to make sure all recommended cancer screens and vaccinations are complete. Avoid live-vaccines unless reviewed with moisture meter reader first. Assessment & Plan (10/29/2023 2:17 PM CDT): Long-term use of high-risk medication requiring regular monitoring. Labs ordered, no s/s of med tox or infection. Encouraged to work with PCP to make sure all recommended cancer screens and vaccinations are complete. Avoid live-vaccines unless reviewed with moisture meter reader first. Assessment & Plan (03/19/2022 12:52 PM PIVOT END POLISHER): Long-term use of high-risk medication requiring regular monitoring. Labs ordered, no s/s of med tox or infection. Encouraged to work with PCP to make sure all recommended cancer screens and vaccinations are complete. Avoid live-vaccines unless reviewed with moisture meter reader first. TB due with labs. Long-term use of hydroxychloroquine 03/19/2022 Assessment & Plan (04/14/2024 2:48 PM PIVOT END POLISHER): Up to date with eye exam. [facility] October 2023. Assessment & Plan (10/29/2023 2:17 PM CDT): Up to date with eye exams ([facility] in [place]) no HCQ toxicity. Hydroxychloroquine (Plaquenil) is a [...] all the medications you are taking, including vbiu-jwj-sjfyqpr drugs and natural remedies. Be sure to [...] James Wood MD, and reviewed by the [place] [employer] Committee on Communications and Marketing Assessment & Plan (03/20/2022 8:43 AM PIVOT END POLISHER): Last eye exam was without signs of Toxicity at [facility] in Summer 2021. Will call to get [...] 09/26/2021 Assessment & Plan (04/05/2023 12:57 PM PIVOT END POLISHER): Continue trazodone. Assessment & Plan (09/26/2021 11:24 [...] (08/31/2018): Added automatically from request for surgery [id number] Neck strain, initial encounter 03/21/2018 Assessment & Plan (03/21/2018 6:06 PM PIVOT END POLISHER): Neck strain since Friday No improvement with OTC remedies Continue with ice and heat as tolerated Light range of motion PT if no improvement Neoplasm of uncertain behavior 03/19/2018 Assessment & Plan (03/19/2018 3:16 PM PIVOT END POLISHER): chest Biopsy/ies done per procedure note. Wound care reviewed with patient. Follow-up per path. Vitamin D deficiency 02/08/2018 Assessment & Plan (04/05/2023 12:58 PM PIVOT END POLISHER): Continue current supplementation and check level in 1 year. Assessment & Plan (09/26/2021 11:22 AM CDT): Continue current supplementation and check level in 1 year. Assessment & Plan (11/08/2020 3:13 PM CDT): Continue current supplementation and check level in 1 year. Assessment & Plan (09/07/2019 4:01 PM CDT): Continue current supplementation and check level in 1 year. Assessment & Plan (03/08/2019 9:25 AM PIVOT END POLISHER): She should be more consistent with her vitamin-D intake. Assessment & Plan (08/21/2018 9:25 AM CDT): Continue 5000 units daily and check level before next visit. Assessment & Plan (04/22/2018 10:30 PM CDT): Continue supplementation check level in 1 year. Assessment & Plan (02/08/2018 2:56 PM PIVOT END POLISHER): Should be taking her vitamin-D on a regular basis. Diarrhea following gastrointestinal surgery 12/13 Assessment & Plan (04/22/2018 10:32 PM CDT): Increase colestipol. Call back if no improvement in 2 weeks for increase in dose again. Consider GI referral if no improvement next visit. Assessment & Plan (02/08/2018 2:54 PM PIVOT END POLISHER): Trial of colestipol Healthcare maintenance 04/16/2017 Assessment & Plan (04/05/2023 12:57 PM PIVOT END POLISHER): Flu shot each November. Tetanus booster every 10 years. COVID booster recommended. Colonoscopy due October 2028. Mammogram yearly. Follow-up the guest specialist as they direct. Will see her back in 1 year for physical fasting lab sooner if needed. Assessment & Plan (09/26/2021 11:24 AM CDT): Flu shot each November. Tetanus booster updated today. COVID vaccine completed. Colonoscopy due October 2028. Mammogram yearly. Follow-up the guest specialist for breast exam and pelvic exam as they direct. Will see her back in 1 year for physical fasting lab sooner if needed. Assessment & Plan (11/08/2020 3:13 PM CDT): Flu shot each November. Tetanus booster 10 years. COVID vaccine completed. Colonoscopy due October 2028. Mammogram yearly. Follow-up the guest specialist for breast exam and pelvic exam as they direct. We will see her back in 1 year for physical fasting lab sooner if needed. Assessment & Plan (09/07/2019 4:03 PM CDT): Flu shot each November. Tetanus booster every 10 years. Diagnostic mammogram due in October. Call back for results. Colonoscopy due October 2028. Follow-up with the guest specialist for breast exam and pelvic exam as they direct. We will see her back in 1 year for physical fasting lab sooner if needed. Assessment & Plan (04/22/2018 10:30 PM CDT): Flu shot each November. Tetanus booster every 10 years. Mammogram yearly. Follow- up the guest specialist for breast exam and pelvic exam as they direct. We will see her back in 3 months with labs and blood pressure check sooner if needed. Assessment & Plan (04/16/2017 8:47 AM PIVOT END POLISHER): Flu shot each November. Tetanus booster every 10 years. She will need a 2nd found Pneumovax at age 63. She is up-to-date her guest specialist. Yearly mammogram. We will see her back in 1 year for physical and fasting lab sooner if needed BMI 33.0-33.9,adult 09/18/2016 Nonalcoholic fatty liver disease 12/02/2013 Overview (05/16/2016): FERREIRA Assessment & Plan (04/05/2023 12:57 PM PIVOT END POLISHER): Weight loss recommended for FERREIRA. Assessment & [...] recommended. Assessment & Plan (03/08/2019 9:25 AM PIVOT END POLISHER): Continue current PPI and the patient is [...] recommended. Assessment & Plan (02/08/2018 2:53 PM PIVOT END POLISHER): Continue current PPI and the patient is aware of the long-term risks posed by chronic PPI usage. Magnesium level will be checked periodically. Calcium supplementation recommended. Assessment & Plan (04/16/2017 8:43 AM PIVOT END POLISHER): Continue current PPI and the patient is aware of the long-term risks posed by chronic PPI usage. Magnesium level will be checked periodically. Calcium supplementation recommended. Hyperlipidemia 08/12/2013 Overview (05/16/2016): Hyperlipidaemia Assessment & Plan (04/05/2023 12:57 PM PIVOT END POLISHER): Well controlled on current therapy and will [...] 12months. Assessment & Plan (03/08/2019 9:25 AM PIVOT END POLISHER): Currently well controlled on her pravastatin and [...] visit. Assessment & Plan (02/08/2018 2:53 PM PIVOT END POLISHER): Make sure she is still taking her pravastatin. Continue her Lovaza, Niaspan but add colestipol and of course work on diet exercise and weight loss. Assessment & Plan (04/16/2017 8:43 AM PIVOT END POLISHER): Continue pravastatin for now and check lipids and LFTs today and before next visit should call back for results. Diet exercise discussed. Steatosis of liver 08/12/2013 Overview (04/16/2017): Fatty liver on ultrasound November 2011. Assessment & Plan (04/16/2017 8:46 AM PIVOT END POLISHER): Weight loss recommended. Seronegative rheumatoid arthritis 06/26/2013 Overview (05/15/2016): Seronegative rheumatoid arthritis Assessment & Plan (04/14/2024 2:47 PM PIVOT END POLISHER): Much improved and stable on orencia and [...] prn. Assessment & Plan (03/20/2022 8:42 AM PIVOT END POLISHER): Stable on Orencia and HCQ. Continue same. Follow up in 5 months and prn. Assessment & Plan (09/26/2021 11:21 AM CDT): Continue current medication regimen with moisture meter reader as they direct. Assessment & Plan (11/08/2020 3:12 PM CDT): Well controlled on current medication regimen and follow-up with moisture meter reader as they direct. Assessment & Plan (09/07/2019 4:01 PM CDT): Well controlled on hydroxychloroquine and Orencia and should follow-up with her moisture meter reader as they direct. Assessment & Plan (03/08/2019 9:25 AM PIVOT END POLISHER): Currently doing well on her medication regimen managed by her moisture meter reader. Assessment & Plan (08/21/2018 9:22 AM CDT): Continue current medication regimen follow up with her moisture meter reader as they direct. Assessment & Plan (04/22/2018 10:29 PM CDT): Follow-up with her moisture meter reader as they direct. Assessment & Plan (04/16/2017 8:43 AM PIVOT END POLISHER): Well controlled on her current regimen and should follow up with moisture meter reader as they direct. Hypertension 05/27/2013 Overview (05/17/2016): Hypertension Assessment & Plan (04/05/2023 12:57 PM PIVOT END POLISHER): Blood pressure well controlled on lisinopril only. [...] recommended. Assessment & Plan (03/08/2019 9:25 AM PIVOT END POLISHER): Well controlled on the current regimen. Avoidance [...] controlled. Assessment & Plan (02/08/2018 2:54 PM PIVOT END POLISHER): Well controlled on the current regimen. Avoidance of salt, proper body weight, and routine exercise recommended. Assessment & Plan (04/16/2017 8:44 AM PIVOT END POLISHER): Well controlled on the current regimen. Avoidance of salt, proper body weight, and routine exercise recommended. Skin tag 04/25/2011 Resolved Problems Problem Noted Date Diagnosed Date Resolved Date Leukocytosis 12/26/2014 06/28/2018 Overview (05/16/2016): Leukocytosis Assessment & Plan (04/16/2017 8:44 AM PIVOT END POLISHER): Chronic and asymptomatic and warning signs discussed which would prompt a repeat visit before next year.. Hypertriglyceridemia 06/26/2013 018 Overview (05/15/2016): Hypertriglyceridemia Immunizations Immunization Administration Dates Next Due HPV, [...] PPV23 03/19/2016 Td, adsorbed 09/26/2021 Tdap 05/09/2011 Social History Tobacco Use Types Packs/Day Years [...] on file Legal Sex Female 11:28 PM PIVOT END POLISHER Gender Identity Not on file Sexual Orientation Not on file Last Filed Vital Signs Vital Sign Reading Time Taken Comments Blood Pressure 120/74 04/14/2024 2:04 PM PIVOT END POLISHER Pulse 84 04/14/2024 2:04 PM PIVOT END POLISHER Temperature 36.9 C (98.4 F) 04/14/2024 2:04 PM PIVOT END POLISHER Respiratory Rate 18 04/14/2024 2:04 PM PIVOT END POLISHER Oxygen Saturation 98% 04/14/2024 2:04 PM PIVOT END POLISHER Inhaled Oxygen Concentration - - Weight 72.6 kg (160 lb) 04/14/2024 2:04 PM PIVOT END POLISHER Height 152.4 cm (5') 04/14/2024 2:04 PM PIVOT END POLISHER Body Mass Index 31.25 04/14/2024 2:04 PM PIVOT END POLISHER Plan of Treatment Not on file Procedures Procedure Name Priority Date/Time Associated Diagnosis [...] 2:43 PM CDT [facility] Department of Pathology [address] [place], [place] [id number] Final Report Patient Name: CRISTIAN ALBRIGHT Address: [address] [place] [address] Gender: F : 1975 (Age: 43) Service: Laboratory Location: Lab [facility] #: [id number] Patient Type: [facility] Lab Taken: 12/07/2019 Received: 12/08/2019 Accessioned:: 12/08/2019 [...] determined by the Surgical Pathology Department at [facility] as part of an ongoing quality control manager program and in compliance with federally mandated [...] characteristics determined by the Surgical Pathology Department [facility]. It has not been cleared or approved by the U. S. Food and Drug Administration. us Bienvenido Yoder MD LAB CYTOLOGY ORDERABLE S Final Result * COLONOSCOPY (10/16/2018 8:00 AM CDT) Anatomical Region Laterality Modality Other Narrative Procedure Note Michael Mata MD - 10/16/2018 8:00 AM CDT [facility] Patient Name: Cristian Albright Procedure Date: 10/16/2018 8:00 AM Date of : 1975 Admit Type: Outpatient Age: 42 Gender: Female Attending MD: Michael Mata M.D. Room: [facility] ENDOSCOPY ROOM 2 Note Status: Finalized [...] The scopewas passed under direct vision. The [id number] was introduced through the anus andadvanced to [...] malignant neoplasm of colon CPT copyright 2017 [employer]. All rights reserved. The codes documented in this report are preliminary and upon bellstaff reviewmay be revised to meet current compliance requirements. Recognized by the [place] [employer] for promoting quality in endoscopy Michael Mata MD ENDOSCOPY PROCEDURES Final Re sult from Last 3 Months or Most Recently Relevant to Health Maintenance Insurance [facility] H[facility]/PPO Address: [address] [address] [facility] HMO/PPO Address: [address] [address] [place] [address] [facility] [employer] Address: [facility] [id number] [place] [address] [facility] [employer] Address[facility] [id number] [place] [address] [facility] H[facility]/PPO Address: [facility] [address] [place] [address] Advance Directives For more information, please contact: [phone] * Full Code (Latest Code Status on File) Date Activated Date Inactivated Comments 10/16/2018 7:45 AM 10/16/2018 2:04 PM * Full Code Date Activated Date Inactivated Comments 10/16/2018 7:45 AM 10/16/2018 7:45 AM Care Teams Company Marker Relationship Specialty Start Date End Date Diego Rios MD PCP - General Family Practice 11/20/23
[2024-09-04 07:28] LABS: Hematocrit 39.8 % (37.0-47.0); Hemoglobin 13.1 g/dL (12.0-15.0); Immature Granulocyte Percent A 0.2 % (0-0.5); Lymphocytes Absolute Auto 4.35 K/mm3 (0.9-3.2); Mean Corpuscular HGB Conc 32.9 g/dl (32-36); Mean Corpuscular Hemoglobin 31.3 pg (26-34); Mean Corpuscular Volume 95.2 fl (80-100); Nucleated Red Blood Cells Absolute Auto 0.000 K/mm3 (0.0-0.012); Nucleated Red Blood Cells Perc 0.0 % (0.0-0.2); Platelet Count Result 285 k/mm3 (150-375); Red Blood Count 4.18 M/mm3 (4.2-5.4); White Blood Count 9.3 K/mm3 (4.5-10.0)
[2024-09-04 07:52] LABS: Alanine Aminotransferase 90 U/L (6-35); Albumin Level 4.8 g/dL (3.5-5.1); Alkaline Phosphatase 76 U/L (38-126); Anion Gap 9 mmol/L (4-12); Aspartate Amino Transferase 44 U/L (14-36); Bilirubin,Total 0.2 mg/dL (0.2-1.3); Blood Urea Nitrogen 18 mg/dL (7-17); Calcium 9.9 mg/dL (8.4-10.2); Carbon Dioxide 28 mmol/L (22-30); Chloride 104 mmol/L (98-107); Cholesterol 223 mg/dL (0-200); Estimated Glomerular Filt Rate > 60; Glucose 96 mg/dL (65-110); HDL Direct 55 mg/dL; Potassium 4.2 mmol/L (3.4-5.0); Sodium 141 mmol/L (137-145); Total Protein 7.9 g/dL (6.3-8.2); Triglycerides 349 mg/dL (<150)
== END 2024-09-04 07:13 | disposition home or self-care (01) ==
LOC: ANHLAB 07:13
PROVIDERS: PCP Family Medicine; Visit Provider Family Medicine
DX: M06.9 Rheumatoid arthritis, unspecified (principal); I10 Essential (primary) hypertension; E66.9 Obesity, unspecified; E55.9 Vitamin D deficiency, unspecified; K21.9 Gastro-esophageal reflux disease without esophagitis; K75.81 Nonalcoholic steatohepatitis (NASH)
CPT/HCPCS: 36415; 80053; 80061; 82172; 82306; 85025

== ENCOUNTER 2024-09-10 07:11 | Emergency (ER) | payer OTHER, SELFPAY ==
--- OUTSIDE RECORDS SUMMARY | 2024-09-10 07:14 | XMS_ITS | Encounter Summary ---
Author Organization [facility] Address [address] [place] [address] Phone Care Team Providers Care Aircraft Machinist Helper Name Role Phone Diego Rios MD Primary Care Provider [phone] Encounter Details Date Type Department Care Team (Late st Contact Info) Description 04/16/2017 Orders Only [facility] ProviderEma MD [address] [place] [id number] Social History Tobacco Use Types Packs/Day Years Used Date Smoking Tobacco: Never Smokeless Tobacco: Never Alcohol Use Standard Drinks/Week Comments No 0 (1 standard drink = 0.6 oz pur e alcohol) Comments Unknown Sex and Gender Information Value Date Recorded Sex Assigned at Not on file Legal Sex Female 11:28 PM HOUSE DIRECTOR Gender Identity Not on file Sexual Orientation Not on file documented as of this encounter Plan of Treatment Not on file documented as of this encounter Procedures Procedure Name Priority Date/Time Associated Diagnosis Comments DISCHARGE LABORATORY CUMULATIVE REPORT 04/16/2017 12:00 AM HOUSE DIRECTOR documented in this encounter Results * DISCHARGE LABORATORY CUMULATIVE REPORT (04/16/2017 12:00 AM HOUSE DIRECTOR) Narrative 04/16/2017 12:00 AM HOUSE DIRECTOR Ordered by an unspecified provider. Historical Provider LAB BLOOD ORDERABLES Arabella l Result documented in this encounter Visit Diagnoses Not on filedocumented in this encounter Additional Health Concerns Infection Onset Date Last Indicated Resolved Time COVID: Suspected 12/22/2019 12/23/2019 12/23/2019 1:56 PM HOUSE DIRECTOR COVID19 12/23/2019 12/23/2019 01/06/2020 3:07 AM HOUSE DIRECTOR COVID: Recovered Comment:Added based on recent COVID infection. 01/06/2020 01/16/2020 05/05/2020 3:05 AM C DT COVID: Suspected 07/01/2021 07/01/2021 07/02/2021 3:05 AM CDT COVID19 07/01/2021 07/01/2021 07/11/2021 3:05 AM CDT COVID: Recovered Comment:Added based on recent COVID infection. 07/11/2021 08/14/2021 11/08/2021 3:05 AM C DT documented as of this encounter Care Teams Aircraft Machinist Helper Relationship Specialty Start Date End Date Diego Rios MD PCP - General Family Practice 11/20/23 documented as of this encounter
--- OUTSIDE RECORDS SUMMARY | 2024-09-10 07:14 | XMS_ITS | Clinical Summary ---
Author Organization [facility] Address [address] [place] [address] Care Team Providers Care Bell Spinner Name Role Phone Diego Rios MD Primary Care Provider [phone] Allergies Active Allergy Reactions Criticality Noted Date [...] 04/14/2024 Assessment & Plan (04/14/2024 2:48 PM ORTHO TECH): Encourage routine vaccinations. Follow up with PCP. Avoid close contact with infectious individuals. If you become ill, please let us know so we can provide guidance on holding your immunosuppressant medications. Encounter for long-term (cur rent) use of high-risk medication 03/19/2022 Assessment & Plan (04/14/2024 2:47 PM ORTHO TECH): Long-term use of high-risk medication requiring regular monitoring. Labs done through [facility] reviewed. no s/s of med tox or current infection. Encouraged to work with PCP to make sure all recommended cancer screens and vaccinations are complete. Avoid live-vaccines unless reviewed with retail service representative first. Assessment & Plan (10/29/2023 2:17 PM CDT): Long-term use of high-risk medication requiring regular monitoring. Labs ordered, no s/s of med tox or infection. Encouraged to work with PCP to make sure all recommended cancer screens and vaccinations are complete. Avoid live-vaccines unless reviewed with retail service representative first. Assessment & Plan (03/19/2022 12:52 PM ORTHO TECH): Long-term use of high-risk medication requiring regular monitoring. Labs ordered, no s/s of med tox or infection. Encouraged to work with PCP to make sure all recommended cancer screens and vaccinations are complete. Avoid live-vaccines unless reviewed with retail service representative first. TB due with labs. Long-term use of hydroxychloroquine 03/19/2022 Assessment & Plan (04/14/2024 2:48 PM ORTHO TECH): Up to date with eye exam. Apolinar MONTENEGRO October 2023. Assessment & Plan (10/29/2023 2:17 PM CDT): Up to date with eye exams ([facility] [place]) no HCQ toxicity. Hydroxychloroquine (Plaquenil) [...] all the medications you are taking, including kdqc-duk-mxodvny drugs and natural remedies. Be sure to [...] James Wood MD, and reviewed by the [employer] Committee on Communications and Marketing Assessment & Plan (03/20/2022 8:43 AM ORTHO TECH): Last eye exam was without signs of Toxicity at [facility] in Summer 2021. Will call to get [...] 09/26/2021 Assessment & Plan (04/05/2023 12:57 PM ORTHO TECH): Continue trazodone. Assessment & Plan (09/26/2021 11:24 [...] (08/31/2018): Added automatically from request for surgery [id number] Neck strain, initial encounter 03/21/2018 Assessment & Plan (03/21/2018 6:06 PM ORTHO TECH): Neck strain since Friday No improvement with OTC remedies Continue with ice and heat as tolerated Light range of motion PT if no improvement Neoplasm of uncertain behavior 03/19/2018 Assessment & Plan (03/19/2018 3:16 PM ORTHO TECH): chest Biopsy/ies done per procedure note. Wound care reviewed with patient. Follow-up per path. Vitamin D deficiency 02/08/2018 Assessment & Plan (04/05/2023 12:58 PM ORTHO TECH): Continue current supplementation and check level in 1 year. Assessment & Plan (09/26/2021 11:22 AM CDT): Continue current supplementation and check level in 1 year. Assessment & Plan (11/08/2020 3:13 PM CDT): Continue current supplementation and check level in 1 year. Assessment & Plan (09/07/2019 4:01 PM CDT): Continue current supplementation and check level in 1 year. Assessment & Plan (03/08/2019 9:25 AM ORTHO TECH): She should be more consistent with her vitamin-D intake. Assessment & Plan (08/21/2018 9:25 AM CDT): Continue 5000 units daily and check level before next visit. Assessment & Plan (04/22/2018 10:30 PM CDT): Continue supplementation check level in 1 year. Assessment & Plan (02/08/2018 2:56 PM ORTHO TECH): Should be taking her vitamin-D on a regular basis. Diarrhea following gastrointestinal surgery 12/13 Assessment & Plan (04/22/2018 10:32 PM CDT): Increase colestipol. Call back if no improvement in 2 weeks for increase in dose again. Consider GI referral if no improvement next visit. Assessment & Plan (02/08/2018 2:54 PM ORTHO TECH): Trial of colestipol Healthcare maintenance 04/16/2017 Assessment & Plan (04/05/2023 12:57 PM ORTHO TECH): Flu shot each November. Tetanus booster every 10 years. COVID booster recommended. Colonoscopy due October 2028. Mammogram yearly. Follow-up the discharge planner as they direct. Will see her back in 1 year for physical fasting lab sooner if needed. Assessment & Plan (09/26/2021 11:24 AM CDT): Flu shot each November. Tetanus booster updated today. COVID vaccine completed. Colonoscopy due October 2028. Mammogram yearly. Follow-up the discharge planner for breast exam and pelvic exam as they direct. Will see her back in 1 year for physical fasting lab sooner if needed. Assessment & Plan (11/08/2020 3:13 PM CDT): Flu shot each November. Tetanus booster 10 years. COVID vaccine completed. Colonoscopy due October 2028. Mammogram yearly. Follow-up the discharge planner for breast exam and pelvic exam as they direct. We will see her back in 1 year for physical fasting lab sooner if needed. Assessment & Plan (09/07/2019 4:03 PM CDT): Flu shot each November. Tetanus booster every 10 years. Diagnostic mammogram due in October. Call back for results. Colonoscopy due October 2028. Follow-up with the discharge planner for breast exam and pelvic exam as they direct. We will see her back in 1 year for physical fasting lab sooner if needed. Assessment & Plan (04/22/2018 10:30 PM CDT): Flu shot each November. Tetanus booster every 10 years. Mammogram yearly. Follow- up the discharge planner for breast exam and pelvic exam as they direct. We will see her back in 3 months with labs and blood pressure check sooner if needed. Assessment & Plan (04/16/2017 8:47 AM ORTHO TECH): Flu shot each November. Tetanus booster every 10 years. She will need a 2nd found Pneumovax at age 63. She is up-to-date her discharge planner. Yearly mammogram. We will see her back in 1 year for physical and fasting lab sooner if needed BMI 33.0-33.9,adult 09/18/2016 Nonalcoholic fatty liver disease 12/02/2013 Overview (05/16/2016): FERREIRA Assessment & Plan (04/05/2023 12:57 PM ORTHO TECH): Weight loss recommended for FERREIRA. Assessment & [...] recommended. Assessment & Plan (03/08/2019 9:25 AM ORTHO TECH): Continue current PPI and the patient is [...] recommended. Assessment & Plan (02/08/2018 2:53 PM ORTHO TECH): Continue current PPI and the patient is aware of the long-term risks posed by chronic PPI usage. Magnesium level will be checked periodically. Calcium supplementation recommended. Assessment & Plan (04/16/2017 8:43 AM ORTHO TECH): Continue current PPI and the patient is aware of the long-term risks posed by chronic PPI usage. Magnesium level will be checked periodically. Calcium supplementation recommended. Hyperlipidemia 08/12/2013 Overview (05/16/2016): Hyperlipidaemia Assessment & Plan (04/05/2023 12:57 PM ORTHO TECH): Well controlled on current therapy and will [...] 12months. Assessment & Plan (03/08/2019 9:25 AM ORTHO TECH): Currently well controlled on her pravastatin and [...] visit. Assessment & Plan (02/08/2018 2:53 PM ORTHO TECH): Make sure she is still taking her pravastatin. Continue her Lovaza, Niaspan but add colestipol and of course work on diet exercise and weight loss. Assessment & Plan (04/16/2017 8:43 AM ORTHO TECH): Continue pravastatin for now and check lipids and LFTs today and before next visit should call back for results. Diet exercise discussed. Steatosis of liver 08/12/2013 Overview (04/16/2017): Fatty liver on ultrasound November 2011. Assessment & Plan (04/16/2017 8:46 AM ORTHO TECH): Weight loss recommended. Seronegative rheumatoid arthritis 06/26/2013 Overview (05/15/2016): Seronegative rheumatoid arthritis Assessment & Plan (04/14/2024 2:47 PM ORTHO TECH): Much improved and stable on orencia and [...] prn. Assessment & Plan (03/20/2022 8:42 AM ORTHO TECH): Stable on Orencia and HCQ. Continue same. Follow up in 5 months and prn. Assessment & Plan (09/26/2021 11:21 AM CDT): Continue current medication regimen with retail service representative as they direct. Assessment & Plan (11/08/2020 3:12 PM CDT): Well controlled on current medication regimen and follow-up with retail service representative as they direct. Assessment & Plan (09/07/2019 4:01 PM CDT): Well controlled on hydroxychloroquine and Orencia and should follow-up with her retail service representative as they direct. Assessment & Plan (03/08/2019 9:25 AM ORTHO TECH): Currently doing well on her medication regimen managed by her retail service representative. Assessment & Plan (08/21/2018 9:22 AM CDT): Continue current medication regimen follow up with her retail service representative as they direct. Assessment & Plan (04/22/2018 10:29 PM CDT): Follow-up with her retail service representative as they direct. Assessment & Plan (04/16/2017 8:43 AM ORTHO TECH): Well controlled on her current regimen and should follow up with retail service representative as they direct. Hypertension 05/27/2013 Overview (05/17/2016): Hypertension Assessment & Plan (04/05/2023 12:57 PM ORTHO TECH): Blood pressure well controlled on lisinopril only. [...] recommended. Assessment & Plan (03/08/2019 9:25 AM ORTHO TECH): Well controlled on the current regimen. Avoidance [...] controlled. Assessment & Plan (02/08/2018 2:54 PM ORTHO TECH): Well controlled on the current regimen. Avoidance of salt, proper body weight, and routine exercise recommended. Assessment & Plan (04/16/2017 8:44 AM ORTHO TECH): Well controlled on the current regimen. Avoidance of salt, proper body weight, and routine exercise recommended. Skin tag 04/25/2011 Resolved Problems Problem Noted Date Diagnosed Date Resolved Date Leukocytosis 12/26/2014 06/28/2018 Overview (05/16/2016): Leukocytosis Assessment & Plan (04/16/2017 8:44 AM ORTHO TECH): Chronic and asymptomatic and warning signs discussed which would prompt a repeat visit before next year.. Hypertriglyceridemia 06/26/2013 018 Overview (05/15/2016): Hypertriglyceridemia Encounters Date Type Department Care Team Description 06/16/[address] [facility] Rheumatology at [facility] [address] [place] [address] Morena Davis NP Clarification on [...] is Calculus of gallbladder [place] e; Comments: [facility] 08/12/2013 - Ganglion Ganglion cyst; C omments: [facility] 08/12/2013 - Hx Other Medical Tubal Ligation; Comments: [facility] 08/12/2013 - Hyperlipidemia Hyperlipidemia; Comments: [facility] 08/12/2013 - Hypertension Hypertension Insomnia Insomnia; Commen ts: [facility] 08/12/2013 - Menopause present Menopause; Com ments: [facility] 08/12/2013 - Steatosis of liver Fatty liver; Comments: [facility] 08/12/2013 - Autoimmune disease Rheumatoid arthritis Family [...] Bandar nary artery disease; living. early 40s [place]./Coronary artery disease; Early Father Scottie oRgel Heart attack Father Scottie Rogel Hyperlipidemia Father [...] on file Legal Sex Female 11:28 PM ORTHO TECH Gender Identity Not on file Sexual Orientation Not on file Obstetrics History Para Term AB IAB SAB Ectopic Multiple Livin g Live Births 2 2 2 Date Outcome GA Total Labor Labor/2nd/3rd Weight Sex Type Anes PTL Imelda A1 A5 Name Clin Term Term Last Filed Vital Signs Vital Sign Reading Time Taken Comments Blood Pressure 120/74 04/14/2024 2:04 PM ORTHO TECH Pulse 84 04/14/2024 2:04 PM ORTHO TECH Temperature 36.9 C (98.4 F) 04/14/2024 2:04 PM ORTHO TECH Respiratory Rate 18 04/14/2024 2:04 PM ORTHO TECH Oxygen Saturation 98% 04/14/2024 2:04 PM ORTHO TECH Inhaled Oxygen Concentration - - Weight 72.6 kg (160 lb) 04/14/2024 2:04 PM ORTHO TECH Height 152.4 cm (5') 04/14/2024 2:04 PM ORTHO TECH Body Mass Index 31.25 04/14/2024 2:04 PM ORTHO TECH Plan of Treatment Health Maintenance Due Date [...] 2:43 PM CDT [facility] Department of Pathology [address] [place] [id number] Final Report Patient Name: CRISTIAN ALBRIGHT Address: [address] [place] [address] Gender: F : 1975 (Age: 43) Service: Laboratory Location: Lab [facility] #: [id number] Patient Type: Ref Lab Taken: 12/07/2019 Received: [...] determined by the Surgical Pathology Department at [facility] as part of an ongoing quality control engineer program and in compliance with federally mandated [...] characteristics determined by the Surgical Pathology Department [facility]. It has not been cleared or approved by the U. S. Food and Drug Administration. us Bienvenido Yoder MD LAB CYTOLOGY ORDERABLE S Final Result * COLONOSCOPY (10/16/2018 8:00 AM CDT) Anatomical Region Laterality Modality Other Narrative Procedure Note Michael Mata MD - 10/16/2018 8:00 AM CDT [facility] Patient Name: Cristian Albright Procedure Date: 10/16/2018 8:00 AM Date of : 1975 Admit Type: Outpatient Age: 42 Gender: Female Attending MD: Michael Mata M.D. Room: [facility] ROOM 2 Note Status: Finalized Patient [...] The scopewas passed under direct vision. The [id number] was introduced through the anus andadvanced to [...] malignant neoplasm of colon CPT copyright 2017 [employer]. All rights reserved. The codes documented in this report are preliminary and upon helper electrical reviewmay be revised to meet current compliance requirements. Recognized by the [employer] for promoting quality in endoscopy Michael Mata MD ENDOSCOPY PROCEDURES Final Re sult from Last 3 Months or Most Recently Relevant to Health Maintenance Insurance [facility] H[facility]/PPO Address: [address] [place] [address] [facility] HMO/PPO Address: [address] [address] [place] [address] [facility] [employer] Address: [facility] [id number] [place] [address] [facility] [employer] Address: [facility] [id number] [place] [address] [facility] HMO/PPO Address: [address] [address] Advance Directives For more information, please contact: [phone] * Full Code (Latest Code Status on File) Date Activated Date Inactivated Comments 10/16/2018 7:45 AM 10/16/2018 2:04 PM * Full Code Date Activated Date Inactivated Comments 10/16/2018 7:45 AM 10/16/2018 7:45 AM Care Teams Bell Spinner Relationship Specialty Start Date End Date Diego Rios MD PCP - General Family Practice 11/20/23
--- OUTSIDE RECORDS SUMMARY | 2024-09-10 07:15 | XMS_ITS | Referral Summary ---
Author Organization [facility] Address [address] [place] [address] Care Team Providers Care Radioisotope Technologist Name Role Phone Diego Rios MD Primary Care Provider [phone] Encounters Date Type Department Care Team Description 06/16/[address] [facility] Rheumatology at [facility] [address] [place] [address] Morena Davis NP Clarification on [...] 04/14/2024 Assessment & Plan (04/14/2024 2:48 PM BROILER MANAGER): Encourage routine vaccinations. Follow up with PCP. Avoid close contact with infectious individuals. If you become ill, please let us know so we can provide guidance on holding your immunosuppressant medications. Encounter for long-term (cur rent) use of high-risk medication 03/19/2022 Assessment & Plan (04/14/2024 2:47 PM BROILER MANAGER): Long-term use of high-risk medication requiring regular monitoring. Labs done through [facility] reviewed. no s/s of med tox or current infection. Encouraged to work with PCP to make sure all recommended cancer screens and vaccinations are complete. Avoid live-vaccines unless reviewed with shuttle fixer first. Assessment & Plan (10/29/2023 2:17 PM CDT): Long-term use of high-risk medication requiring regular monitoring. Labs ordered, no s/s of med tox or infection. Encouraged to work with PCP to make sure all recommended cancer screens and vaccinations are complete. Avoid live-vaccines unless reviewed with shuttle fixer first. Assessment & Plan (03/19/2022 12:52 PM BROILER MANAGER): Long-term use of high-risk medication requiring regular monitoring. Labs ordered, no s/s of med tox or infection. Encouraged to work with PCP to make sure all recommended cancer screens and vaccinations are complete. Avoid live-vaccines unless reviewed with shuttle fixer first. TB due with labs. Long-term use of hydroxychloroquine 03/19/2022 Assessment & Plan (04/14/2024 2:48 PM BROILER MANAGER): Up to date with eye exam. [facility] October 2023. Assessment & Plan (10/29/2023 2:17 PM CDT): Up to date with eye exams ([place] [place]) no HCQ toxicity. Hydroxychloroquine (Plaquenil) [...] all the medications you are taking, including [id number]-[id number] drugs and natural remedies. Be sure to [...] James Wood MD, and reviewed by the [employer] Committee on Communications and Marketing Assessment & Plan (03/20/2022 8:43 AM BROILER MANAGER): Last eye exam was without signs of Toxicity at [facility] in Summer 2021. Will call to get [...] 09/26/2021 Assessment & Plan (04/05/2023 12:57 PM BROILER MANAGER): Continue trazodone. Assessment & Plan (09/26/2021 11:24 [...] (08/31/2018): Added automatically from request for surgery [id number] Neck strain, initial encounter 03/21/2018 Assessment & Plan (03/21/2018 6:06 PM BROILER MANAGER): Neck strain since Friday No improvement with OTC remedies Continue with ice and heat as tolerated Light range of motion PT if no improvement Neoplasm of uncertain behavior 03/19/2018 Assessment & Plan (03/19/2018 3:16 PM BROILER MANAGER): chest Biopsy/ies done per procedure note. Wound care reviewed with patient. Follow-up per path. Vitamin D deficiency 02/08/2018 Assessment & Plan (04/05/2023 12:58 PM BROILER MANAGER): Continue current supplementation and check level in 1 year. Assessment & Plan (09/26/2021 11:22 AM CDT): Continue current supplementation and check level in 1 year. Assessment & Plan (11/08/2020 3:13 PM CDT): Continue current supplementation and check level in 1 year. Assessment & Plan (09/07/2019 4:01 PM CDT): Continue current supplementation and check level in 1 year. Assessment & Plan (03/08/2019 9:25 AM BROILER MANAGER): She should be more consistent with her vitamin-D intake. Assessment & Plan (08/21/2018 9:25 AM CDT): Continue 5000 units daily and check level before next visit. Assessment & Plan (04/22/2018 10:30 PM CDT): Continue supplementation check level in 1 year. Assessment & Plan (02/08/2018 2:56 PM BROILER MANAGER): Should be taking her vitamin-D on a regular basis. Diarrhea following gastrointestinal surgery 12/13 Assessment & Plan (04/22/2018 10:32 PM CDT): Increase colestipol. Call back if no improvement in 2 weeks for increase in dose again. Consider GI referral if no improvement next visit. Assessment & Plan (02/08/2018 2:54 PM BROILER MANAGER): Trial of colestipol Healthcare maintenance 04/16/2017 Assessment & Plan (04/05/2023 12:57 PM BROILER MANAGER): Flu shot each November. Tetanus booster every 10 years. COVID booster recommended. Colonoscopy due October 2028. Mammogram yearly. Follow-up the platform software engineer as they direct. Will see her back in 1 year for physical fasting lab sooner if needed. Assessment & Plan (09/26/2021 11:24 AM CDT): Flu shot each November. Tetanus booster updated today. COVID vaccine completed. Colonoscopy due October 2028. Mammogram yearly. Follow-up the platform software engineer for breast exam and pelvic exam as they direct. Will see her back in 1 year for physical fasting lab sooner if needed. Assessment & Plan (11/08/2020 3:13 PM CDT): Flu shot each November. Tetanus booster 10 years. COVID vaccine completed. Colonoscopy due October 2028. Mammogram yearly. Follow-up the platform software engineer for breast exam and pelvic exam as they direct. We will see her back in 1 year for physical fasting lab sooner if needed. Assessment & Plan (09/07/2019 4:03 PM CDT): Flu shot each November. Tetanus booster every 10 years. Diagnostic mammogram due in October. Call back for results. Colonoscopy due October 2028. Follow-up with the platform software engineer for breast exam and pelvic exam as they direct. We will see her back in 1 year for physical fasting lab sooner if needed. Assessment & Plan (04/22/2018 10:30 PM CDT): Flu shot each November. Tetanus booster every 10 years. Mammogram yearly. Follow- up the platform software engineer for breast exam and pelvic exam as they direct. We will see her back in 3 months with labs and blood pressure check sooner if needed. Assessment & Plan (04/16/2017 8:47 AM BROILER MANAGER): Flu shot each November. Tetanus booster every 10 years. She will need a 2nd found Pneumovax at age 63. She is up-to-date her platform software engineer. Yearly mammogram. We will see her back in 1 year for physical and fasting lab sooner if needed BMI 33.0-33.9,adult 09/18/2016 Nonalcoholic fatty liver disease 12/02/2013 Overview (05/16/2016): FERREIRA Assessment & Plan (04/05/2023 12:57 PM BROILER MANAGER): Weight loss recommended for FERREIRA. Assessment & [...] recommended. Assessment & Plan (03/08/2019 9:25 AM BROILER MANAGER): Continue current PPI and the patient is [...] recommended. Assessment & Plan (02/08/2018 2:53 PM BROILER MANAGER): Continue current PPI and the patient is aware of the long-term risks posed by chronic PPI usage. Magnesium level will be checked periodically. Calcium supplementation recommended. Assessment & Plan (04/16/2017 8:43 AM BROILER MANAGER): Continue current PPI and the patient is aware of the long-term risks posed by chronic PPI usage. Magnesium level will be checked periodically. Calcium supplementation recommended. Hyperlipidemia 08/12/2013 Overview (05/16/2016): Hyperlipidaemia Assessment & Plan (04/05/2023 12:57 PM BROILER MANAGER): Well controlled on current therapy and will [...] 12months. Assessment & Plan (03/08/2019 9:25 AM BROILER MANAGER): Currently well controlled on her pravastatin and [...] visit. Assessment & Plan (02/08/2018 2:53 PM BROILER MANAGER): Make sure she is still taking her pravastatin. Continue her Lovaza, Niaspan but add colestipol and of course work on diet exercise and weight loss. Assessment & Plan (04/16/2017 8:43 AM BROILER MANAGER): Continue pravastatin for now and check lipids and LFTs today and before next visit should call back for results. Diet exercise discussed. Steatosis of liver 08/12/2013 Overview (04/16/2017): Fatty liver on ultrasound November 2011. Assessment & Plan (04/16/2017 8:46 AM BROILER MANAGER): Weight loss recommended. Seronegative rheumatoid arthritis 06/26/2013 Overview (05/15/2016): Seronegative rheumatoid arthritis Assessment & Plan (04/14/2024 2:47 PM BROILER MANAGER): Much improved and stable on orencia and [...] prn. Assessment & Plan (03/20/2022 8:42 AM BROILER MANAGER): Stable on Orencia and HCQ. Continue same. Follow up in 5 months and prn. Assessment & Plan (09/26/2021 11:21 AM CDT): Continue current medication regimen with shuttle fixer as they direct. Assessment & Plan (11/08/2020 3:12 PM CDT): Well controlled on current medication regimen and follow-up with shuttle fixer as they direct. Assessment & Plan (09/07/2019 4:01 PM CDT): Well controlled on hydroxychloroquine and Orencia and should follow-up with her shuttle fixer as they direct. Assessment & Plan (03/08/2019 9:25 AM BROILER MANAGER): Currently doing well on her medication regimen managed by her shuttle fixer. Assessment & Plan (08/21/2018 9:22 AM CDT): Continue current medication regimen follow up with her shuttle fixer as they direct. Assessment & Plan (04/22/2018 10:29 PM CDT): Follow-up with her shuttle fixer as they direct. Assessment & Plan (04/16/2017 8:43 AM BROILER MANAGER): Well controlled on her current regimen and should follow up with shuttle fixer as they direct. Hypertension 05/27/2013 Overview (05/17/2016): Hypertension Assessment & Plan (04/05/2023 12:57 PM BROILER MANAGER): Blood pressure well controlled on lisinopril only. [...] recommended. Assessment & Plan (03/08/2019 9:25 AM BROILER MANAGER): Well controlled on the current regimen. Avoidance [...] controlled. Assessment & Plan (02/08/2018 2:54 PM BROILER MANAGER): Well controlled on the current regimen. Avoidance of salt, proper body weight, and routine exercise recommended. Assessment & Plan (04/16/2017 8:44 AM BROILER MANAGER): Well controlled on the current regimen. Avoidance of salt, proper body weight, and routine exercise recommended. Skin tag 04/25/2011 Resolved Problems Problem Noted Date Diagnosed Date Resolved Date Leukocytosis 12/26/2014 06/28/2018 Overview (05/16/2016): Leukocytosis Assessment & Plan (04/16/2017 8:44 AM BROILER MANAGER): Chronic and asymptomatic and warning signs discussed [...] on file Legal Sex Female 11:28 PM BROILER MANAGER Gender Identity Not on file Sexual Orientation Not on file Last Filed Vital Signs Vital Sign Reading Time Taken Comments Blood Pressure 120/74 04/14/2024 2:04 PM BROILER MANAGER Pulse 84 04/14/2024 2:04 PM BROILER MANAGER Temperature 36.9 C (98.4 F) 04/14/2024 2:04 PM BROILER MANAGER Respiratory Rate 18 04/14/2024 2:04 PM BROILER MANAGER Oxygen Saturation 98% 04/14/2024 2:04 PM BROILER MANAGER Inhaled Oxygen Concentration - - Weight 72.6 kg (160 lb) 04/14/2024 2:04 PM BROILER MANAGER Height 152.4 cm (5') 04/14/2024 2:04 PM BROILER MANAGER Body Mass Index 31.25 04/14/2024 2:04 PM BROILER MANAGER Plan of Treatment Not on file Procedures [...] 2:43 PM CDT [facility] Department of Pathology [address] [place], [place] [id number] Final Report Patient Name: CRISTIAN ALBRIGHT Address: [address] [place] [address] Gender: F : 1975 (Age: 43) Service: Laboratory Location: Lab [facility] #: [id number] Patient Type: Counts include 234 beds at the [facility] Lab Taken: 12/07/2019 Received: 12/08/2019 Accessioned:: 12/08/2019 [...] determined by the Surgical Pathology Department at [facility] as part of an ongoing air quality engineer program and in compliance with federally [...] characteristics determined by the Surgical Pathology Department [facility]. It has not been cleared or approved [...] Female Attending MD: Michael Mata M.D. Room: [facility] ENDOSCOPY ROOM 2 Note Status: Finalized [...] The scopewas passed under direct vision. The [id number] was introduced through the anus andadvanced to [...] malignant neoplasm of colon CPT copyright 2017 [employer]. All rights reserved. The codes documented in this report are preliminary and upon recovery analyst reviewmay be revised to meet current compliance requirements. Recognized by the [employer] for promoting quality in endoscopy Michael Mata MD ENDOSCOPY PROCEDURES Final Re sult from Last 3 Months or Most Recently Relevant to Health Maintenance Insurance [facility] H[facility]/PPO Address: [address] [address] [facility] HMO/PPO Address: [address] [address] [place] [address] [facility] [employer] Address: [facility] [id number] [place] [address] [facility] [employer] Address: [facility] [address] [place] [address] [facility] HMO/PPO Address: [facility] [address] [place] [address] Advance Directives For more information, please contact: [phone] * Full Code (Latest Code Status on File) Date Activated Date Inactivated Comments 10/16/2018 7:45 AM 10/16/2018 2:04 PM * Full Code Date Activated Date Inactivated Comments 10/16/2018 7:45 AM 10/16/2018 7:45 AM Care Teams Radioisotope Technologist Relationship Specialty Start Date End Date Diego Rios MD PCP - General Family Practice 11/20/23
[2024-09-10 07:18] VITALS: BP 131/80; PULSE 89; RESP 20; O2SAT 100
--- NOTE | 2024-09-10 08:03 | ED.GENADULT ---
HPI - General Adult General Chief complaint: Eye Problems Stated complaint: L eye swelling, blurry Time Seen by Provider: 09/10/24 07:48 History of Present Illness HPI narrative: A 48-year-old female presents to the emergency department for evaluation for left upper eyelid swelling. Patient states the swelling initially started on Friday but has been worsening. Patient has been using warm compresses to no improvement. Patient does have an outside is not yet had follow-up. Patient does wear eye makeup. Patient came in today because the swelling had continued to worsen. Related Data Home Medications ?Medication ?Instructions ?Recorded ?Confirmed ?Last Taken ?Type cholecalciferol (vitamin D3) 125 125 mcg PO DAILY 09/01/23 Unknown History mcg (5,000 unit) capsule hydroxychloroquine 200 mg tablet 200 mg PO BID 09/01/23 Unknown History omega-3 acid ethyl esters 1 gram 1 cap PO BID 09/01/23 Unknown History capsule Allergies Allergy/AdvReac Type Severity Reaction Status Date / Time Penicillins Allergy Severe Hives Verified 09/10/24 07:21 fenofibrate Allergy Mild Unknown Verified 09/10/24 07:21 lorcaserin Allergy Unknown Unknown Verified 09/10/24 07:21 Review of Systems Review of Systems: All systems reviewed & are unremarkable except as noted in HPI and below PMFSH Past Medical History Medical History Vitamin D deficiency FERREIRA (nonalcoholic steatohepatitis) Insomnia Hypertension Essential hypertension Hyperlipemia GERD (gastroesophageal reflux disease) Arthritis Family History Family History Father Cancer Hypertension Heart problem Acute myocardial infarction Mother Hypertension Sibling Cancer Diabetes mellitus Hypertension Heart problem Grandparent Cancer Grandparent Diabetes mellitus Hypertension Heart problem Cerebrovascular accident Social History Social History Smoking status: Never smoker Alcohol intake: current Drinks per week: 1 Alcohol use details: Wine Do You Feel Safe in your Home?: Yes Lack of Transportation: No Lack of Food: Never True Current Housing: I Have Housing Concerned About Future Housing: No Difficulty Paying Gas/Electric Bills: No Difficulty Paying for Meds: No Currently Unemployed: No Education: Decline to Answer Difficulty w/ Childcare or Family Care: No Living arrangements: with family Occupation/Education: occupation Gender identity (if verbalized by the patient): Female Sexual Orientation (if Verbalized by the Patient): Straight or Heterosexual Spiritual care concerns: No Exam Narrative: APPEARANCE: Well appearing, no pain, no distress, well-nourished. HEAD: normocephalic, atraumatic. EYES: Left upper eyelid stye with erythema NOSE: Normal no drainage EARS:TMS clear with good light reflex. THROAT: Pharynx clear, no exudate. NECK: Supple. No adenopathy, no masses. RESPIRATORY: Airway patent, respirations nonlabored. Clear to auscultation bilaterally, no rales, rhonchi, wheezing. CARDIOVASCULAR: Regular rate and rhythm without murmurs rubs or gallops. ABDOMINAL: Soft, nontender, nondistended, normal bowel sounds MUSCULOSKELETAL: Moves all extremities. Strength/ROM intact, No edema, No calf tenderness. NEURO: Alert. Cranial nerves II through XII intact. Good gait. Good coordination SKIN: Warm, dry. Normal Color Course Vital Signs Vital signs: Vital Signs Pulse Rate 89 09/10/24 07:18 Respiratory Rate 20 09/10/24 07:18 Blood Pressure 131/80 09/10/24 07:18 Pulse Oximetry 100 09/10/24 07:18 Oxygen Delivery Room Air 09/10/24 07:18 Temperature 97.8 F 09/10/24 08:47 Pulse Rate 89 09/10/24 07:18 Respiratory Rate 20 09/10/24 07:18 Blood Pressure 131/80 09/10/24 07:18 Pulse Oximetry 100 09/10/24 07:18 Oxygen Delivery Room Air 09/10/24 07:[address] [facility] Narrative Medical decision making narrative: 48-year-old female presents to the emergency department for evaluation for left eyelid swelling. Exam is consistent with a stye. Patient will not be able have follow-up with ophthalmology in till Friday. Patient has had this ongoing for 4 days. Patient will be provided p.o. Keflex. Patient was advised to continue use a warm compress and to have close follow-up with Ophthalmology. Patient was also advised to start taking fish oil to help prevent additional styes. All questions concerns were addressed patient was well-appearing at time of discharge. Differential Diagnosis Differential Diagnosis: Allergic conjunctivitis, cellulitis, stye Vital Signs Vital Signs: Vital Signs Pulse Rate 89 09/10/24 07:18 Respiratory Rate 20 09/10/24 07:18 Blood Pressure 131/80 09/10/24 07:18 Pulse Oximetry 100 09/10/24 07:18 Oxygen Delivery Room Air 09/10/24 07:18 Temperature 97.8 F 09/10/24 08:47 Pulse Rate 89 09/10/24 07:18 Respiratory Rate 20 09/10/24 07:18 Blood Pressure 131/80 09/10/24 07:18 Pulse Oximetry 100 09/10/24 07:18 Oxygen Delivery Room Air 09/10/24 07:18 Discharge Plan Discharge Clinical Impression: Hordeolum externum left upper eyelid Patient Disposition: Home Condition: Stable Instructions: Antibiotic Camille Christopher (ED) Additional Instructions: Continue warm compresses as directed. Antibiotics as directed. Ibuprofen as needed for inflammation and pain control. Have close follow-up with Ophthalmology. Call your director transition for follow-up. If you have any worsening symptoms or if you have any questions or concerns then please call or return to the emergency department. Patient Language: Maltese Prescriptions: New cephalexin 500 mg capsule 500 mg PO Q12H 7 Days Qty: 14 0RF No Action hydroxychloroquine 200 mg tablet 200 mg PO BID omega-3 acid ethyl esters 1 gram capsule 1 cap PO BID cholecalciferol (vitamin D3) 125 mcg (5,000 unit) capsule 125 mcg PO DAILY pravastatin 20 mg tablet 20 mg PO DAILY Qty: 90 1RF pantoprazole 40 mg tablet,delayed release (DR/EC) 40 mg PO QAM Qty: 90 1RF prednisone 20 mg tablet 40 mg PO DAILY Qty: 10 0RF doxycycline monohydrate 100 mg tablet 100 mg PO BID Qty: 14 0RF trazodone 50 mg tablet 50 mg PO .COMPLEX Qty: 120 1RF Rx Instructions: 50 mg orally daily and 2 tablets PRN; pravastatin 40 mg tablet 40 mg PO DAILY Qty: 90 1RF Follow-up/Referrals: Danny Spann [Outside] Danny Toribio [Outside] Diego Rios MD [Primary Care Provider] -
--- OUTSIDE RECORDS SUMMARY | 2024-09-10 08:16 | XMS_ITS | Clinical Summary ---
Author Organization [facility] Address [address] [place] [address] Care Team Providers Care Card Folder Name Role Phone Diego Rios MD Primary Care Provider [phone] Allergies Active Allergy Reactions Criticality Noted Date [...] 04/14/2024 Assessment & Plan (04/14/2024 2:48 PM CITY LIBRARY DIRECTOR): Encourage routine vaccinations. Follow up with PCP. Avoid close contact with infectious individuals. If you become ill, please let us know so we can provide guidance on holding your immunosuppressant medications. Encounter for long-term (cur rent) use of high-risk medication 03/19/2022 Assessment & Plan (04/14/2024 2:47 PM CITY LIBRARY DIRECTOR): Long-term use of high-risk medication requiring regular monitoring. Labs done through [facility] reviewed. no s/s of med tox or current infection. Encouraged to work with PCP to make sure all recommended cancer screens and vaccinations are complete. Avoid live-vaccines unless reviewed with retail performance coach first. Assessment & Plan (10/29/2023 2:17 PM CDT): Long-term use of high-risk medication requiring regular monitoring. Labs ordered, no s/s of med tox or infection. Encouraged to work with PCP to make sure all recommended cancer screens and vaccinations are complete. Avoid live-vaccines unless reviewed with retail performance coach first. Assessment & Plan (03/19/2022 12:52 PM CITY LIBRARY DIRECTOR): Long-term use of high-risk medication requiring regular monitoring. Labs ordered, no s/s of med tox or infection. Encouraged to work with PCP to make sure all recommended cancer screens and vaccinations are complete. Avoid live-vaccines unless reviewed with retail performance coach first. TB due with labs. Long-term use of hydroxychloroquine 03/19/2022 Assessment & Plan (04/14/2024 2:48 PM CITY LIBRARY DIRECTOR): Up to date with eye exam. Apolinar [...] all the medications you are taking, including [id number] drugs and natural remedies. Be sure to [...] James Wood MD, and reviewed by the [place] [employer] Committee on Communications and Marketing Assessment & Plan (03/20/2022 8:43 AM CITY LIBRARY DIRECTOR): Last eye exam was without signs of Toxicity at [place] in [facility] in Summer 2021. Will call to [...] 09/26/2021 Assessment & Plan (04/05/2023 12:57 PM CITY LIBRARY DIRECTOR): Continue trazodone. Assessment & Plan (09/26/2021 11:24 [...] (08/31/2018): Added automatically from request for surgery [id number] Neck strain, initial encounter 03/21/2018 Assessment & Plan (03/21/2018 6:06 PM CITY LIBRARY DIRECTOR): Neck strain since Friday No improvement with OTC remedies Continue with ice and heat as tolerated Light range of motion PT if no improvement Neoplasm of uncertain behavior 03/19/2018 Assessment & Plan (03/19/2018 3:16 PM CITY LIBRARY DIRECTOR): chest Biopsy/ies done per procedure note. Wound care reviewed with patient. Follow-up per path. Vitamin D deficiency 02/08/2018 Assessment & Plan (04/05/2023 12:58 PM CITY LIBRARY DIRECTOR): Continue current supplementation and check level in 1 year. Assessment & Plan (09/26/2021 11:22 AM CDT): Continue current supplementation and check level in 1 year. Assessment & Plan (11/08/2020 3:13 PM CDT): Continue current supplementation and check level in 1 year. Assessment & Plan (09/07/2019 4:01 PM CDT): Continue current supplementation and check level in 1 year. Assessment & Plan (03/08/2019 9:25 AM CITY LIBRARY DIRECTOR): She should be more consistent with her vitamin-D intake. Assessment & Plan (08/21/2018 9:25 AM CDT): Continue 5000 units daily and check level before next visit. Assessment & Plan (04/22/2018 10:30 PM CDT): Continue supplementation check level in 1 year. Assessment & Plan (02/08/2018 2:56 PM CITY LIBRARY DIRECTOR): Should be taking her vitamin-D on a regular basis. Diarrhea following gastrointestinal surgery 12/13 Assessment & Plan (04/22/2018 10:32 PM CDT): Increase colestipol. Call back if no improvement in 2 weeks for increase in dose again. Consider GI referral if no improvement next visit. Assessment & Plan (02/08/2018 2:54 PM CITY LIBRARY DIRECTOR): Trial of colestipol Healthcare maintenance 04/16/2017 Assessment & Plan (04/05/2023 12:57 PM CITY LIBRARY DIRECTOR): Flu shot each November. Tetanus booster every 10 years. COVID booster recommended. Colonoscopy due October 2028. Mammogram yearly. Follow-up the senior service aide as they direct. Will see her back in 1 year for physical fasting lab sooner if needed. Assessment & Plan (09/26/2021 11:24 AM CDT): Flu shot each November. Tetanus booster updated today. COVID vaccine completed. Colonoscopy due October 2028. Mammogram yearly. Follow-up the senior service aide for breast exam and pelvic exam as they direct. Will see her back in 1 year for physical fasting lab sooner if needed. Assessment & Plan (11/08/2020 3:13 PM CDT): Flu shot each November. Tetanus booster 10 years. COVID vaccine completed. Colonoscopy due October 2028. Mammogram yearly. Follow-up the senior service aide for breast exam and pelvic exam as they direct. We will see her back in 1 year for physical fasting lab sooner if needed. Assessment & Plan (09/07/2019 4:03 PM CDT): Flu shot each November. Tetanus booster every 10 years. Diagnostic mammogram due in October. Call back for results. Colonoscopy due October 2028. Follow-up with the senior service aide for breast exam and pelvic exam as they direct. We will see her back in 1 year for physical fasting lab sooner if needed. Assessment & Plan (04/22/2018 10:30 PM CDT): Flu shot each November. Tetanus booster every 10 years. Mammogram yearly. Follow- up the senior service aide for breast exam and pelvic exam as they direct. We will see her back in 3 months with labs and blood pressure check sooner if needed. Assessment & Plan (04/16/2017 8:47 AM CITY LIBRARY DIRECTOR): Flu shot each November. Tetanus booster every 10 years. She will need a 2nd found Pneumovax at age 63. She is up-to-date her senior service aide. Yearly mammogram. We will see her back in 1 year for physical and fasting lab sooner if needed BMI 33.0-33.9,adult 09/18/2016 Nonalcoholic fatty liver disease 12/02/2013 Overview (05/16/2016): FERREIRA Assessment & Plan (04/05/2023 12:57 PM CITY LIBRARY DIRECTOR): Weight loss recommended for FERREIRA. Assessment & [...] recommended. Assessment & Plan (03/08/2019 9:25 AM CITY LIBRARY DIRECTOR): Continue current PPI and the patient is [...] recommended. Assessment & Plan (02/08/2018 2:53 PM CITY LIBRARY DIRECTOR): Continue current PPI and the patient is aware of the long-term risks posed by chronic PPI usage. Magnesium level will be checked periodically. Calcium supplementation recommended. Assessment & Plan (04/16/2017 8:43 AM CITY LIBRARY DIRECTOR): Continue current PPI and the patient is aware of the long-term risks posed by chronic PPI usage. Magnesium level will be checked periodically. Calcium supplementation recommended. Hyperlipidemia 08/12/2013 Overview (05/16/2016): Hyperlipidaemia Assessment & Plan (04/05/2023 12:57 PM CITY LIBRARY DIRECTOR): Well controlled on current therapy and will [...] 12months. Assessment & Plan (03/08/2019 9:25 AM CITY LIBRARY DIRECTOR): Currently well controlled on her pravastatin and [...] visit. Assessment & Plan (02/08/2018 2:53 PM CITY LIBRARY DIRECTOR): Make sure she is still taking her pravastatin. Continue her Lovaza, Niaspan but add colestipol and of course work on diet exercise and weight loss. Assessment & Plan (04/16/2017 8:43 AM CITY LIBRARY DIRECTOR): Continue pravastatin for now and check lipids and LFTs today and before next visit should call back for results. Diet exercise discussed. Steatosis of liver 08/12/2013 Overview (04/16/2017): Fatty liver on ultrasound November 2011. Assessment & Plan (04/16/2017 8:46 AM CITY LIBRARY DIRECTOR): Weight loss recommended. Seronegative rheumatoid arthritis 06/26/2013 Overview (05/15/2016): Seronegative rheumatoid arthritis Assessment & Plan (04/14/2024 2:47 PM CITY LIBRARY DIRECTOR): Much improved and stable on orencia and [...] prn. Assessment & Plan (03/20/2022 8:42 AM CITY LIBRARY DIRECTOR): Stable on Orencia and HCQ. Continue same. Follow up in 5 months and prn. Assessment & Plan (09/26/2021 11:21 AM CDT): Continue current medication regimen with retail performance coach as they direct. Assessment & Plan (11/08/2020 3:12 PM CDT): Well controlled on current medication regimen and follow-up with retail performance coach as they direct. Assessment & Plan (09/07/2019 4:01 PM CDT): Well controlled on hydroxychloroquine and Orencia and should follow-up with her retail performance coach as they direct. Assessment & Plan (03/08/2019 9:25 AM CITY LIBRARY DIRECTOR): Currently doing well on her medication regimen managed by her retail performance coach. Assessment & Plan (08/21/2018 9:22 AM CDT): Continue current medication regimen follow up with her retail performance coach as they direct. Assessment & Plan (04/22/2018 10:29 PM CDT): Follow-up with her retail performance coach as they direct. Assessment & Plan (04/16/2017 8:43 AM CITY LIBRARY DIRECTOR): Well controlled on her current regimen and should follow up with retail performance coach as they direct. Hypertension 05/27/2013 Overview (05/17/2016): Hypertension Assessment & Plan (04/05/2023 12:57 PM CITY LIBRARY DIRECTOR): Blood pressure well controlled on lisinopril only. [...] recommended. Assessment & Plan (03/08/2019 9:25 AM CITY LIBRARY DIRECTOR): Well controlled on the current regimen. Avoidance [...] controlled. Assessment & Plan (02/08/2018 2:54 PM CITY LIBRARY DIRECTOR): Well controlled on the current regimen. Avoidance of salt, proper body weight, and routine exercise recommended. Assessment & Plan (04/16/2017 8:44 AM CITY LIBRARY DIRECTOR): Well controlled on the current regimen. Avoidance of salt, proper body weight, and routine exercise recommended. Skin tag 04/25/2011 Resolved Problems Problem Noted Date Diagnosed Date Resolved Date Leukocytosis 12/26/2014 06/28/2018 Overview (05/16/2016): Leukocytosis Assessment & Plan (04/16/2017 8:44 AM CITY LIBRARY DIRECTOR): Chronic and asymptomatic and warning signs discussed which would prompt a repeat visit before next year.. Hypertriglyceridemia 06/26/2013 018 Overview (05/15/2016): Hypertriglyceridemia Encounters Date Type Department Care Team Description 06/16/2024 Telephone [facility] Rheumatology at [facility] [address] [place] [address] Morena Davis NP Clarification on [...] is Calculus of gallbladder [place] e; Comments: [facility] 08/12/2013 - Ganglion Ganglion cyst; C omments: [facility] 08/12/2013 - Hx Other Medical Tubal Ligation; Comments: [facility] 08/12/2013 - Hyperlipidemia Hyperlipidemia; Comments: [facility] 08/12/2013 - Hypertension Hypertension Insomnia Insomnia; Commen ts: [facility] 08/12/2013 - Menopause present Menopause; Com ments: [facility] 08/12/2013 - Steatosis of liver Fatty liver; Comments: [facility] 08/12/2013 - Autoimmune disease Rheumatoid arthritis Family [...] Bandar nary artery disease; living. early 40s [place]./Coronary artery disease; Early Father Scottie Rogel Heart [...] on file Legal Sex Female 11:28 PM CITY LIBRARY DIRECTOR Gender Identity Not on file Sexual Orientation Not on file Obstetrics History Para Term AB IAB SAB Ectopic Multiple Livin g Live Births 2 2 2 Date Outcome GA Total Labor Labor/2nd/3rd Weight Sex Type Anes PTL Imelda A1 A5 Name Clin Term Term Last Filed Vital Signs Vital Sign Reading Time Taken Comments Blood Pressure 120/74 04/14/2024 2:04 PM CITY LIBRARY DIRECTOR Pulse 84 04/14/2024 2:04 PM CITY LIBRARY DIRECTOR Temperature 36.9 C (98.4 F) 04/14/2024 2:04 PM CITY LIBRARY DIRECTOR Respiratory Rate 18 04/14/2024 2:04 PM CITY LIBRARY DIRECTOR Oxygen Saturation 98% 04/14/2024 2:04 PM CITY LIBRARY DIRECTOR Inhaled Oxygen Concentration - - Weight 72.6 kg (160 lb) 04/14/2024 2:04 PM CITY LIBRARY DIRECTOR Height 152.4 cm (5') 04/14/2024 2:04 PM CITY LIBRARY DIRECTOR Body Mass Index 31.25 04/14/2024 2:04 PM CITY LIBRARY DIRECTOR Plan of Treatment Health Maintenance Due Date [...] 2:43 PM CDT [facility] Department of Pathology [address] [place] [id number] Final Report Patient Name: CRISTIAN ABLRIGHT Address: [address] [place] [address] Gender: F : 1975 (Age: 43) Service: Laboratory Location: Lab [facility] #: [id number] Patient Type: Ref Lab Taken: 12/07/2019 Received: [...] determined by the Surgical Pathology Department at [facility] as part of an ongoing design quality engineer program and in compliance with [...] characteristics determined by the Surgical Pathology Department [facility]. It has not been cleared or approved by the U. S. Food and Drug Administration. us Bienvenido oYder MD LAB CYTOLOGY ORDERABLE S Final Result * COLONOSCOPY (10/16/2018 8:00 AM CDT) Anatomical Region Laterality Modality Other Narrative Procedure Note Michael Mata MD - 10/16/2018 8:00 AM CDT [facility] Patient Name: Cristian Albright Procedure Date: 10/16/2018 8:00 AM Date of : 1975 Admit Type: Outpatient Age: 42 Gender: Female Attending MD: Michael Mata M.D. Room: [facility] ENDOSCOPY ROOM 2 Note Status: Finalized [...] The scopewas passed under direct vision. The [id number] was introduced through the anus andadvanced to [...] malignant neoplasm of colon CPT copyright 2017 [place] [employer]. All rights reserved. The codes documented in this report are preliminary and upon equipment maintenance superintendent reviewmay be revised to meet current compliance requirements. Recognized by the [place] [employer] for promoting quality in endoscopy Michael Mata MD ENDOSCOPY PROCEDURES Final Re sult from Last 3 Months or Most Recently Relevant to Health Maintenance Insurance [facility] [employer] Address: [facility] [id number] [place] [address] [facility] [employer] Address: [facility] [id number] [place] [address] [facility] Advance Directives For more information, please contact: [phone] * Full Code (Latest Code Status on File) Date Activated Date Inactivated Comments 10/16/2018 7:45 AM 10/16/2018 2:04 PM * Full Code Date Activated Date Inactivated Comments 10/16/2018 7:45 AM 10/16/2018 7:45 AM Care Teams Card Folder Relationship Specialty Start Date End Date Diego Rios MD PCP - General Family Practice 11/20/23
--- OUTSIDE RECORDS SUMMARY | 2024-09-10 08:16 | XMS_ITS | Referral Summary ---
Author Organization [facility] Address [address] [place] [address] Care Team Providers Care Mounter Hand Name Role Phone Diego Rios MD Primary Care Provider [phone] Encounters Date Type Department Care Team Description 06/16/2024 Telephone [facility] Rheumatology at [facility] [address] [place] [address] Morena Davis NP Clarification on [...] 04/14/2024 Assessment & Plan (04/14/2024 2:48 PM SOILED LINEN DISTRIBUTOR): Encourage routine vaccinations. Follow up with PCP. Avoid close contact with infectious individuals. If you become ill, please let us know so we can provide guidance on holding your immunosuppressant medications. Encounter for long-term (cur rent) use of high-risk medication 03/19/2022 Assessment & Plan (04/14/2024 2:47 PM SOILED LINEN DISTRIBUTOR): Long-term use of high-risk medication requiring regular monitoring. Labs done through [facility] reviewed. no s/s of med tox or current infection. Encouraged to work with PCP to make sure all recommended cancer screens and vaccinations are complete. Avoid live-vaccines unless reviewed with manager infusion first. Assessment & Plan (10/29/2023 2:17 PM CDT): Long-term use of high-risk medication requiring regular monitoring. Labs ordered, no s/s of med tox or infection. Encouraged to work with PCP to make sure all recommended cancer screens and vaccinations are complete. Avoid live-vaccines unless reviewed with manager infusion first. Assessment & Plan (03/19/2022 12:52 PM SOILED LINEN DISTRIBUTOR): Long-term use of high-risk medication requiring regular monitoring. Labs ordered, no s/s of med tox or infection. Encouraged to work with PCP to make sure all recommended cancer screens and vaccinations are complete. Avoid live-vaccines unless reviewed with manager infusion first. TB due with labs. Long-term use of hydroxychloroquine 03/19/2022 Assessment & Plan (04/14/2024 2:48 PM SOILED LINEN DISTRIBUTOR): Up to date with eye exam. [facility] October 2023. Assessment & Plan (10/29/2023 2:17 PM CDT): Up to date with eye exams ([facility] in [place]) no HCQ toxicity. Hydroxychloroquine (Plaquenil) [...] all the medications you are taking, including [id number]-[id number] drugs and natural remedies. Be sure to [...] James Wood MD, and reviewed by the [employer] Committee on Communications and Marketing Assessment & Plan (03/20/2022 8:43 AM SOILED LINEN DISTRIBUTOR): Last eye exam was without signs of Toxicity at [facility] in Summer 2021. [...] 09/26/2021 Assessment & Plan (04/05/2023 12:57 PM SOILED LINEN DISTRIBUTOR): Continue trazodone. Assessment & Plan (09/26/2021 11:24 [...] (08/31/2018): Added automatically from request for surgery [id number] Neck strain, initial encounter 03/21/2018 Assessment & Plan (03/21/2018 6:06 PM SOILED LINEN DISTRIBUTOR): Neck strain since Friday No improvement with OTC remedies Continue with ice and heat as tolerated Light range of motion PT if no improvement Neoplasm of uncertain behavior 03/19/2018 Assessment & Plan (03/19/2018 3:16 PM SOILED LINEN DISTRIBUTOR): chest Biopsy/ies done per procedure note. Wound care reviewed with patient. Follow-up per path. Vitamin D deficiency 02/08/2018 Assessment & Plan (04/05/2023 12:58 PM SOILED LINEN DISTRIBUTOR): Continue current supplementation and check level in 1 year. Assessment & Plan (09/26/2021 11:22 AM CDT): Continue current supplementation and check level in 1 year. Assessment & Plan (11/08/2020 3:13 PM CDT): Continue current supplementation and check level in 1 year. Assessment & Plan (09/07/2019 4:01 PM CDT): Continue current supplementation and check level in 1 year. Assessment & Plan (03/08/2019 9:25 AM SOILED LINEN DISTRIBUTOR): She should be more consistent with her vitamin-D intake. Assessment & Plan (08/21/2018 9:25 AM CDT): Continue 5000 units daily and check level before next visit. Assessment & Plan (04/22/2018 10:30 PM CDT): Continue supplementation check level in 1 year. Assessment & Plan (02/08/2018 2:56 PM SOILED LINEN DISTRIBUTOR): Should be taking her vitamin-D on a regular basis. Diarrhea following gastrointestinal surgery 12/13 Assessment & Plan (04/22/2018 10:32 PM CDT): Increase colestipol. Call back if no improvement in 2 weeks for increase in dose again. Consider GI referral if no improvement next visit. Assessment & Plan (02/08/2018 2:54 PM SOILED LINEN DISTRIBUTOR): Trial of colestipol Healthcare maintenance 04/16/2017 Assessment & Plan (04/05/2023 12:57 PM SOILED LINEN DISTRIBUTOR): Flu shot each November. Tetanus booster every 10 years. COVID booster recommended. Colonoscopy due October 2028. Mammogram yearly. Follow-up the audit associate as they direct. Will see her back in 1 year for physical fasting lab sooner if needed. Assessment & Plan (09/26/2021 11:24 AM CDT): Flu shot each November. Tetanus booster updated today. COVID vaccine completed. Colonoscopy due October 2028. Mammogram yearly. Follow-up the audit associate for breast exam and pelvic exam as they direct. Will see her back in 1 year for physical fasting lab sooner if needed. Assessment & Plan (11/08/2020 3:13 PM CDT): Flu shot each November. Tetanus booster 10 years. COVID vaccine completed. Colonoscopy due October 2028. Mammogram yearly. Follow-up the audit associate for breast exam and pelvic exam as they direct. We will see her back in 1 year for physical fasting lab sooner if needed. Assessment & Plan (09/07/2019 4:03 PM CDT): Flu shot each November. Tetanus booster every 10 years. Diagnostic mammogram due in October. Call back for results. Colonoscopy due October 2028. Follow-up with the audit associate for breast exam and pelvic exam as they direct. We will see her back in 1 year for physical fasting lab sooner if needed. Assessment & Plan (04/22/2018 10:30 PM CDT): Flu shot each November. Tetanus booster every 10 years. Mammogram yearly. Follow- up the audit associate for breast exam and pelvic exam as they direct. We will see her back in 3 months with labs and blood pressure check sooner if needed. Assessment & Plan (04/16/2017 8:47 AM SOILED LINEN DISTRIBUTOR): Flu shot each November. Tetanus booster every 10 years. She will need a 2nd found Pneumovax at age 63. She is up-to-date her audit associate. Yearly mammogram. We will see her back in 1 year for physical and fasting lab sooner if needed BMI 33.0-33.9,adult 09/18/2016 Nonalcoholic fatty liver disease 12/02/2013 Overview (05/16/2016): FERREIRA Assessment & Plan (04/05/2023 12:57 PM SOILED LINEN DISTRIBUTOR): Weight loss recommended for FERREIRA. Assessment & [...] recommended. Assessment & Plan (03/08/2019 9:25 AM SOILED LINEN DISTRIBUTOR): Continue current PPI and the patient is [...] recommended. Assessment & Plan (02/08/2018 2:53 PM SOILED LINEN DISTRIBUTOR): Continue current PPI and the patient is aware of the long-term risks posed by chronic PPI usage. Magnesium level will be checked periodically. Calcium supplementation recommended. Assessment & Plan (04/16/2017 8:43 AM SOILED LINEN DISTRIBUTOR): Continue current PPI and the patient is aware of the long-term risks posed by chronic PPI usage. Magnesium level will be checked periodically. Calcium supplementation recommended. Hyperlipidemia 08/12/2013 Overview (05/16/2016): Hyperlipidaemia Assessment & Plan (04/05/2023 12:57 PM SOILED LINEN DISTRIBUTOR): Well controlled on current therapy and will [...] 12months. Assessment & Plan (03/08/2019 9:25 AM SOILED LINEN DISTRIBUTOR): Currently well controlled on her pravastatin and [...] visit. Assessment & Plan (02/08/2018 2:53 PM SOILED LINEN DISTRIBUTOR): Make sure she is still taking her pravastatin. Continue her Lovaza, Niaspan but add colestipol and of course work on diet exercise and weight loss. Assessment & Plan (04/16/2017 8:43 AM SOILED LINEN DISTRIBUTOR): Continue pravastatin for now and check lipids and LFTs today and before next visit should call back for results. Diet exercise discussed. Steatosis of liver 08/12/2013 Overview (04/16/2017): Fatty liver on ultrasound November 2011. Assessment & Plan (04/16/2017 8:46 AM SOILED LINEN DISTRIBUTOR): Weight loss recommended. Seronegative rheumatoid arthritis 06/26/2013 Overview (05/15/2016): Seronegative rheumatoid arthritis Assessment & Plan (04/14/2024 2:47 PM SOILED LINEN DISTRIBUTOR): Much improved and stable on orencia and [...] prn. Assessment & Plan (03/20/2022 8:42 AM SOILED LINEN DISTRIBUTOR): Stable on Orencia and HCQ. Continue same. Follow up in 5 months and prn. Assessment & Plan (09/26/2021 11:21 AM CDT): Continue current medication regimen with manager infusion as they direct. Assessment & Plan (11/08/2020 3:12 PM CDT): Well controlled on current medication regimen and follow-up with manager infusion as they direct. Assessment & Plan (09/07/2019 4:01 PM CDT): Well controlled on hydroxychloroquine and Orencia and should follow-up with her manager infusion as they direct. Assessment & Plan (03/08/2019 9:25 AM SOILED LINEN DISTRIBUTOR): Currently doing well on her medication regimen managed by her manager infusion. Assessment & Plan (08/21/2018 9:22 AM CDT): Continue current medication regimen follow up with her manager infusion as they direct. Assessment & Plan (04/22/2018 10:29 PM CDT): Follow-up with her manager infusion as they direct. Assessment & Plan (04/16/2017 8:43 AM SOILED LINEN DISTRIBUTOR): Well controlled on her current regimen and should follow up with manager infusion as they direct. Hypertension 05/27/2013 Overview (05/17/2016): Hypertension Assessment & Plan (04/05/2023 12:57 PM SOILED LINEN DISTRIBUTOR): Blood pressure well controlled on lisinopril only. [...] recommended. Assessment & Plan (03/08/2019 9:25 AM SOILED LINEN DISTRIBUTOR): Well controlled on the current regimen. Avoidance [...] controlled. Assessment & Plan (02/08/2018 2:54 PM SOILED LINEN DISTRIBUTOR): Well controlled on the current regimen. Avoidance of salt, proper body weight, and routine exercise recommended. Assessment & Plan (04/16/2017 8:44 AM SOILED LINEN DISTRIBUTOR): Well controlled on the current regimen. Avoidance of salt, proper body weight, and routine exercise recommended. Skin tag 04/25/2011 Resolved Problems Problem Noted Date Diagnosed Date Resolved Date Leukocytosis 12/26/2014 06/28/2018 Overview (05/16/2016): Leukocytosis Assessment & Plan (04/16/2017 8:44 AM SOILED LINEN DISTRIBUTOR): Chronic and asymptomatic and warning signs discussed [...] on file Legal Sex Female 11:28 PM SOILED LINEN DISTRIBUTOR Gender Identity Not on file Sexual Orientation Not on file Last Filed Vital Signs Vital Sign Reading Time Taken Comments Blood Pressure 120/74 04/14/2024 2:04 PM SOILED LINEN DISTRIBUTOR Pulse 84 04/14/2024 2:04 PM SOILED LINEN DISTRIBUTOR Temperature 36.9 C (98.4 F) 04/14/2024 2:04 PM SOILED LINEN DISTRIBUTOR Respiratory Rate 18 04/14/2024 2:04 PM SOILED LINEN DISTRIBUTOR Oxygen Saturation 98% 04/14/2024 2:04 PM SOILED LINEN DISTRIBUTOR Inhaled Oxygen Concentration - - Weight 72.6 kg (160 lb) 04/14/2024 2:04 PM SOILED LINEN DISTRIBUTOR Height 152.4 cm (5') 04/14/2024 2:04 PM SOILED LINEN DISTRIBUTOR Body Mass Index 31.25 04/14/2024 2:04 PM SOILED LINEN DISTRIBUTOR Plan of Treatment Not on file Procedures [...] 2:43 PM CDT [facility] Department of Pathology [address] [place], [place] [id number] Final Report Patient Name: CRISTIAN ALBRIGHT Address: [address] [place] [address] Gender: F : 1975 (Age: 43) Service: Laboratory Location: Lab [facility] #: [id number] Patient Type: [facility] Lab Taken: 12/07/2019 Received: 12/08/2019 Accessioned:: 12/08/2019 [...] determined by the Surgical Pathology Department at [facility] as part of an ongoing quality measurement specialist program and in compliance with federally mandated [...] determined by the Surgical Pathology Department [facility]. It has not been cleared or approved by the U. S. Food and Drug Administration. us Bienvenido Yoder MD LAB CYTOLOGY ORDERABLE S Final Result * COLONOSCOPY (10/16/2018 8:00 AM CDT) Anatomical Region Laterality Modality Other Narrative Procedure Note Michael Mata MD - 10/16/2018 8:00 AM CDT [facility] Patient Name: Cristian Albright Procedure Date: 10/16/2018 8:00 AM Date of : 1975 Admit Type: Outpatient Age: 42 Gender: Female Attending MD: Michael Mata M.D. Room: [facility] ENDOSCOPY ROOM 2 Note Status: Finalized Patient [...] The scopewas passed under direct vision. The [id number] was introduced through the anus andadvanced to [...] malignant neoplasm of colon CPT copyright 2017 [employer]. All rights reserved. The codes documented in this report are preliminary and upon clinical coder reviewmay be revised to meet current compliance requirements. Recognized by the [employer] for promoting quality in endoscopy Michael Mata MD ENDOSCOPY PROCEDURES Final Re sult from Last 3 Months or Most Recently Relevant to Health Maintenance Insurance [facility] HMO/PPO Address: [address] [address] [facility] HMO/PPO Address: [address] [address] [place] [address] PENDING SALE TO [employer] EMPLOY[employer] HEALTH PLANS Address: [facility] [address] [place] [address] PENDING SALE TO [employer] [employer] Address: [facility] [address] [place] [address] [facility] H[employer]/PPO Address: [facility] [address] [place] [address] Advance Directives For more information, please contact: [phone] * Full Code (Latest Code Status on File) Date Activated Date Inactivated Comments 10/16/2018 7:45 AM 10/16/2018 2:04 PM * Full Code Date Activated Date Inactivated Comments 10/16/2018 7:45 AM 10/16/2018 7:45 AM Care Teams Mounter Hand Relationship Specialty Start Date End Date Diego Rios MD PCP - General Family Practice 11/20/23
--- OUTSIDE RECORDS SUMMARY | 2024-09-10 08:16 | XMS_ITS | Encounter Summary ---
Author Organization [facility] Address [address] [place] [address] Phone Care Team Providers Care Master [employer] Name Role Phone Diego Rios MD Primary Care Provider [phone] Encounter Details Date Type Department Care Team (Late st Contact Info) Description 04/16/2017 Orders Only [facility] ProviderEma MD [address] [place] [id number] Social History Tobacco Use Types Packs/Day Years Used Date Smoking Tobacco: Never Smokeless Tobacco: Never Alcohol Use Standard Drinks/Week Comments No 0 (1 standard drink = 0.6 oz pur e alcohol) Comments Unknown Sex and Gender Information Value Date Recorded Sex Assigned at Not on file Legal Sex Female 11:28 PM AUTOMATION SALES MANAGER Gender Identity Not on file Sexual Orientation Not on file documented as of this encounter Plan of Treatment Not on file documented as of this encounter Procedures Procedure Name Priority Date/Time Associated Diagnosis Comments DISCHARGE LABORATORY CUMULATIVE REPORT 04/16/2017 12:00 AM AUTOMATION SALES MANAGER documented in this encounter Results * DISCHARGE LABORATORY CUMULATIVE REPORT (04/16/2017 12:00 AM AUTOMATION SALES MANAGER) Narrative 04/16/2017 12:00 AM AUTOMATION SALES MANAGER Ordered by an unspecified provider. Historical Provider LAB BLOOD ORDERABLES Arabella l Result documented in this encounter Visit Diagnoses Not on filedocumented in this encounter Additional Health Concerns Infection Onset Date Last Indicated Resolved Time COVID: Suspected 12/22/2019 12/23/2019 12/23/2019 1:56 PM AUTOMATION SALES MANAGER COVID19 12/23/2019 12/23/2019 01/06/2020 3:07 AM AUTOMATION SALES MANAGER COVID: Recovered Comment:Added based on recent COVID infection. 01/06/2020 01/16/2020 05/05/2020 3:05 AM C DT COVID: Suspected 07/01/2021 07/01/2021 07/02/2021 3:05 AM CDT COVID19 07/01/2021 07/01/2021 07/11/2021 3:05 AM CDT COVID: Recovered Comment:Added based on recent COVID infection. 07/11/2021 08/14/2021 11/08/2021 3:05 AM C DT documented as of this encounter Care Teams Master [employer] Relationship Specialty Start Date End Date Diego Rios MD PCP - General Family Practice 11/20/23 documented as of this encounter
[2024-09-10] MEDS: CEPHALEXIN 500 MG CAPSULE PO (08:39)
[2024-09-10 08:47] VITALS: TEMP 36.6
== END 2024-09-10 08:48 | disposition home or self-care (01) ==
LOC: ANHED 08:13
PROVIDERS: Emergency Provider Emergency Medicine; PCP Family Medicine
DX: H00.014 Hordeolum externum left upper eyelid (principal); I10 Essential (primary) hypertension; E55.9 Vitamin D deficiency, unspecified; E78.5 Hyperlipidemia, unspecified; K75.81 Nonalcoholic steatohepatitis (NASH); K21.9 Gastro-esophageal reflux disease without esophagitis; M19.90 Unspecified osteoarthritis, unspecified site
CPT/HCPCS: 99283; A9270